=== PATIENT | female | born 1975 | race Caucasian/White ===

== ENCOUNTER 2024-01-04 10:29 | Outpatient (CLI) | payer BC, SELFPAY ==
--- NOTE | 2024-01-04 10:29 | CT_ITS ---
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 A noncontrast coronary calcium scan was performed. A CT attenuation threshold of 130 Hounsfield units (HU) was used for the detection of calcium in contiguous voxels of 1 sq mm in area to be counted as individual lesions. Bolus tracking in the ascending aorta with a threshold of 180 HU was performed. Immediately afterwards, ECG synchronized cardiac CT was then performed from the cardiac base to apex using retrospective gating with ECG tube current modulation. A total of 85 mL of Isovue 370 mg/mL contrast medium was administered at 5 mL/sec followed by a saline flush using a biphasic injection protocol. A tube voltage of 120 KVp was used. The patient received the following medications prior to the cardiac CT. 0.8 mg of sublingual nitroglycerin The average heart rate at the time of acquisition was 56 bpm and regular. Image Reconstruction Transaxial images were reconstructed at 0.67 mm slide thickness. Data was reviewed interactively on an advanced workstation capable of 2 and 3-dimensional displays in all conventional reconstruction formats, including multiplanar reformations, maximum intensity projections, curved multiplanar reformations, and volume rendered reconstructions. When applicable, selected routine images describing the relevant coronary anatomy and pathology were saved and sent to PACS. Complications None Technical Quality Overall image quality was good. Coronary artery opacification was adequate. Total DLP (Dose-Length Product) is 2570.0 mGy-cm. The reported value represents the total of one or more individual components during the CT acquisition of this date and at this time, and as such, the same value may appear in more than one CT report depending on the interpreting/reporting physicians. COMPARISON None FINDINGS CT Coronary Calcium Scoring LMA (Left Main Artery) = 0 LAD (Left Anterior Descending) = 73 LCX (Left Coronary Circumflex) = 0 RCA (Right Coronary Artery) = 0 Total Calcium Score = 73 using the AJ-130 method. The observed calcium score of 73 is at 99th percentile for subjects of the same age, sex, and race/ethnicity. The interpretation of the calcium heart score is based on the following continuum*: 0 = no calcified plaque detected (risk of coronary artery disease is very low ??? less than 5%) 1-10 = calcium detected in extremely minimal levels (risk of coronary diseases is still low ??? less than 10%) 11-100 = mild levels of plaque detected with certainty (mild or minimal narrowing of heart arteries is likely) 101-400 = definite,at least moderate levels of plaque detected (relatively high risk of a heart attack within 3-5 years) >401-999 = extensive levels of plaque detected (high risk of heart attack, high levels of vascular disease are present, high likelihood of at least one significant coronary narrowing) *The calcium heart score quantifies the burden of coronary calcification/plaque in the coronary arteries. The calcium heart score is not able to evaluate the presence or burden of non-calcified (i.e. soft) plaque. There is no identifiable calcification in the aortic valve, mitral annulus or mitral valve, pericardium, or myocardium. Coronary CT Angiography The coronary arterial system is left dominant. Quantitative Stenosis Grading: Left Main (LM): The left main originates normally from the left sinus of Valsalva. The LM bifurcates into the left anterior descending artery and left circumflex artery. The LM is patent with no evidence of atherosclerosis. Left Anterior Descending (LAD) and Diagonal Branches: The LAD gives off 3 diagonal branches. There are 2 foci of mixed calcified/noncalcified plaques present in the proximal LAD, with up to 25-49% luminal stenosis. There is no evidence of LAD-myocardial bridge. Left Circumflex (LCX) and Obtuse Marginals (OM): The LCX gives off 2 Obtuse Marginal (OM) branches. The LCX and its branches are patent with no evidence of atherosclerosis. Right Coronary Artery (RCA): The RCA originates normally from the right sinus of Valsalva. The RCA gives off a posterior descending artery (PDA) and posterolateral (PL) branches. The RCA and its branches are patent with no evidence of atherosclerosis. Non-Coronary Cardiac Findings: Analysis of the left ventricular (LV) structure and function was performed after 3-D reconstruction of the LV from axial images, with user-corrected automatic contouring for assessment of LV volumes and user-defined reconstruction from oblique planes for measurement of 3-D cardiac structure and function. -The left ventricle systolic function is mildly reduced (LVEF 46%). -There is no left atrial appendage filling defect. Two right pulmonary veins and two left pulmonary veins drain normally into the left atrium. -No pericardial thickening or calcification. -Central and branch pulmonary arteries in the [id number] are unremarkable. -Thoracic aorta within the visualized thoracic aortic-branches in the [id number] is unremarkable. Extracardiac Structures No significant extra-cardiac findings. Note, however, that this study is focused on the cardiac findings. IMPRESSION -Presence of coronary calcification with an Agatston score = 73 using the AJ-130 method. -The observed calcium score of 73 is at 99th percentile for subjects of the same age, sex, and race/ethnicity. -Mild atherosclerotic coronary disease in the proximal LAD segment, but no evidence of significant flow-limiting atherosclerosis of the coronary arteries. -CAD-RADS 2. Management recommendations per ACC/AHA guidelines*, as clinically appropriate. -The left ventricle systolic function is mildly reduced (LVEF 46%). Correlate LVEF with recent or new TTE *Recommendations: CAD RADS 0: Reassurance. Consider non-atherosclerotic causes of chest pain. CAD RADS 1: Consider non-atherosclerotic causes of chest pain. Consider preventive therapy and risk factor modification. CAD RADS 2: Consider non-atherosclerotic causes of chest pain. Consider preventive therapy and risk factor modification, particularly for patients with nonobstructive plaque in multiple segments. CAD RADS 3: Consider further functional testing. Consider symptom-guided anti-ischemic and preventive pharmacotherapy as well as risk factor modification per published guideline statements. CAD RADS 4A: Consider further functional testing or invasive coronary angiography with revascularization per published guideline statements. Consider symptom-guided anti-ischemic and preventive pharmacotherapy as well as risk factor modification per published guideline statements. CAD RADS 4B: Invasive coronary angiography recommended with revascularization per published guideline statements. Consider symptom-guided anti-ischemic and preventive pharmacotherapy as well as risk factor modification per published guideline statements. CAD RADS 5: Consider invasive angiography and/or viability assessment with revascularization per published guideline statements. Consider symptom-guided anti-ischemic and preventive pharmacotherapy as well as risk factor modification per published guideline statements. CRITICAL RESULT None COMMUNICATION Per this written report The coronary and cardiac findings of this CCTA were reviewed, reported, and signed by Karthikeyan Augustin MD (Carbonizer Tester) Conclusion Electronically signed by : Yuliet Augustin MD 01/05/2024 12:57:25
[2024-01-04 10:54] VITALS: BMI 40.6
[2024-01-04] MEDS: METOPROLOL TARTRATE 25MG TABLET 25 MG (11:10)
[2024-01-04] MEDS: IVABRADINE HCL 7.5MG TABLET 15 MG PO (11:10)
[2024-01-04] MEDS: METOPROLOL TARTRATE 50MG TABLET 50 MG (11:10)
[2024-01-04 11:11] LABS: POC Glucose,Bedside 88 (70-110)
[2024-01-04 11:23] LABS: Urine Pregnancy, HCG Qual. Negative (Negative)
[2024-01-04 11:23] LABS: Chloride 107 mmol/L (98-107); Sodium 138 mmol/L (136-145)
[2024-01-04 11:26] LABS: Blood Urea Nitrogen 12 mg/dl (7-17); Calcium 9.5 mg/dl (8.4-10.2); Carbon Dioxide 27 mmol/L (22.0-30.0); Creatinine Clearance Estimated 154 mL/min (50-200); Estimated Glomerular Filt Rate 77 ml/min (>60); GFR (African American) 93 ML/MIN (>60); Glucose 98 mg/dl (74-100)
--- NOTE | 2024-01-04 11:29 | CA_ITS ---
APPROVED REPORT EXAM: Comprehensive 2D, Doppler, and color-flow Echocardiogram Poker Room Manager: JENNIFER Schwartz, RVS Ht: 5 ft 5 in Wt: 244lbs BSA: 2.15 BP: 120/67 mmHg Indications: Palpitations, DM, obesity, GERD, Spinal fractures 2D Dimensions Left Atrium 3.54 cm LA Volume 38.00 mL RVID Base (AP4) 2.48 cm (M/F) 2.5-4.1 LA Volume Index 17.70 mL/m2 (M/F) 16-34 M-Mode Dimensions RVDd 1.52 cm (0.9-2.6) LVDd 4.99 cm (3.5-5.7) Ao Diam 2.93 cm (2.0-3.7) LVDs 3.09 cm (3.5-5.7) IVSd 0.80 cm (0.6-1.1) PWd 0.84 cm (0.6-1.1) EF (Teich) 68.10% EPSs 1.30 cm FS 38.10% EDV (Teich) 117.70 mL TAPSE 1.65 (<1.7) ESV (Teich) 37.60 mL LV Diastology E Decel Time 189 (160-240 msec) E/A Ratio 3.13 MED E' 13.7 (>= 7 cm/sec) MED A' 6.80 cm/s E'/MED E' Ratio 8.47 (<= 14) LAT E' 12.5 (>= 10 cm/sec) LAT A' 7.60 cm/s E/LAT E' Ratio 9.29 (<= 14) Aortic Valve LVOT Max 89.0 (70-110 cm/s) LVOT VTI 17.04 cm AoV Peak Beto. 119.0 (50-130 cm/s) AO Mean GR. 2.80 (<5 mmHg) AO VTI 25.6 (18-25 cm) Mitral Valve MV E Max Beto. 116.0 (40-130 cm/s) MV A Velocity 37.0 (40-130 cm/s) E/A Ratio 3.13 MV Decel. Time 189 (160-240 ms) MV Mean Gr. 1.60 (<2mmHg) Pulmonary Valve SC End VMAX 118.0 cm/s Left Ventricle The left ventricle is normal size. The left ventricular systolic function is mildly reduced. There is normal left ventricular wall thickness. There is mild global hypokinesis present. Grade 3 diastolic dysfunction is present. LVEF is 40-45%. Right Ventricle The right ventricle is normal size. The right ventricular systolic function is normal. Atria The left atrium size is normal. The right atrium size is normal. There is no Doppler evidence of interatrial shunt. Aortic Valve The aortic valve opens well. There is no aortic valvular stenosis. No aortic regurgitation is present. Mitral Valve The mitral valve is normal in structure. No evidence of mitral valve stenosis. Mild mitral regurgitation. Tricuspid Valve The tricuspid valve leaflets are thin and pliable. Trace tricuspid regurgitation. There is insufficient TR jet to estimate RVSP. Pulmonic Valve The pulmonary valve is normal in structure. Mild pulmonic regurgitation. Great Vessels The aortic root is normal in size. The ascending aorta is not well visualized. IVC is normal in size and collapses >50% with inspiration. Pericardium There is no pericardial effusion. Other Information Study Quality: Fair Conclusion Mildly reduced LV systolic function (LVEF 40-45%). Mild MR, mild PI. Electronically signed by : Yuliet Augustin MD 01/08/2024 16:24:47
[2024-01-04] MEDS: METOPROLOL TARTRATE 25MG TABLET *IVABRADINE+METOPROLOL REGIMINE 25 MG PO (12:02)
[2024-01-04 12:35] VITALS: BP 122/78; PULSE 60; RESP 18; O2SAT 98
[2024-01-04] MEDS: NITROGLYCERIN 0.4MG SL TABLET 0.800000000000000044 MG SL (12:35)
[2024-01-04 12:40] VITALS: BP 123/76; PULSE 72; RESP 18; O2SAT 99
[2024-01-04 12:45] VITALS: BP 114/73; PULSE 74; RESP 18; O2SAT 98
[2024-01-04 12:50] VITALS: BP 104/70; PULSE 68; RESP 18; O2SAT 99
[2024-01-04 12:57] VITALS: BP 115/46; PULSE 75; RESP 18; O2SAT 99
[2024-01-04] MEDS: 0.9 % SODIUM CHLORIDE 50 ML VIAL IV (13:01)
[2024-01-04] MEDS: SODIUM CHLORIDE 0.9% 10ML SYR (RAD ONLY) 10 ML IV (13:01)
[2024-01-04] MEDS: IOPAMIDOL-370 (76%);100ML BOTTLE 85 ML IV (13:02)
== END 2024-01-04 23:59 ==
LOC: RAD 10:29
PROVIDERS: PCP Nurse Practitioner Family; Visit Provider Nurse Practitioner Family
DX: R06.00 Dyspnea, unspecified (principal); R00.2 Palpitations; R53.83 Other fatigue; K21.9 Gastro-esophageal reflux disease without esophagitis; E13.9 Other specified diabetes mellitus without complications; Z79.4 Long term (current) use of insulin
CPT/HCPCS: 75571; 75574; 80048; 81025; 82962; 93306; Q9967

== ENCOUNTER 2024-01-31 09:55 | Outpatient (CLI) | payer BC, SELFPAY ==
[2024-01-31] MEDS: SODIUM CHLORIDE 0.9% 10ML SYR (RAD ONLY) 10 ML IV (11:15)
[2024-01-31] MEDS: SODIUM CHLORIDE 0.9% 50ML BAG 25 ML IV (11:15)
[2024-01-31] MEDS: GADOTERIDOL INJ 17ML SYRINGE 24 ML IV (11:16)
== END 2024-01-31 23:59 | disposition home or self-care (01) ==
LOC: RAD 09:56
PROVIDERS: PCP Nurse Practitioner Family; Visit Provider Nurse Practitioner Family
DX: I42.8 Other cardiomyopathies (principal); I51.9 Heart disease, unspecified
CPT/HCPCS: 75561; A9576

== ENCOUNTER 2024-02-16 10:10 | Outpatient (CLI) | payer BC, SELFPAY | END 2024-02-16 23:59 | disposition home or self-care (01) | LOC: LAB.DROPOF 02-17 10:11 | PROVIDERS: PCP Student in an Organized Health Care Education/Training Program; Visit Provider Student in an Organized Health Care Education/Training Program | DX: R39.89 Other symptoms and signs involving the genitourinary system (principal) | CPT/HCPCS: 87086 ==

== ENCOUNTER 2025-01-08 14:16 | Outpatient (CLI) | payer BC, SELFPAY | END 2025-01-08 23:59 | disposition home or self-care (01) | LOC: RT 14:17 | PROVIDERS: PCP Nurse Practitioner Family; Visit Provider Nurse Practitioner Family | DX: I49.3 Ventricular premature depolarization (principal); I49.1 Atrial premature depolarization; I47.10 Supraventricular tachycardia, unspecified | CPT/HCPCS: 93270; 93272 ==

== ENCOUNTER 2025-01-25 08:22 | Outpatient (CLI) | payer BC, SELFPAY ==
--- NOTE | 2025-01-25 | CA_ITS ---
APPROVED REPORT EXAM: Comprehensive 2D, Doppler, and color-flow Echocardiogram Dobie Man: Shanna Parada CRT Ht: 5 ft 5 in Wt: 226lbs BSA: 2.08 BP: 128/73 mmHg Indications: Shortness of Breath, Diabetes, Palpitations, Fatigue, Peripheral Edema, Hyperlipidemia, Cardiomyopathy EF 40-45% 2023 2D Dimensions LA Volume 31.80 mL LA Volume Index 14.90 mL/m2 (M/F) 16-34 M-Mode Dimensions RVDd 2.12 cm (0.9-2.6) LA Diam 3.43 cm (1.9-4.0) LVDd 4.34 cm (3.5-5.7) LVDs 3.19 cm (3.5-5.7) IVSd 0.97 cm (0.6-1.1) PWd 0.89 cm (0.6-1.1) EF (Teich) 52.20% FS 26.50% EDV (Teich) 84.90 mL TAPSE 2.34 (<1.7) ESV (Teich) 40.60 mL LV Diastology E Decel Time 150 (160-240 msec) E/A Ratio 1.41 MED A' 9.60 cm/s LAT A' 10.40 cm/s Aortic Valve AO Peak GR. 6.00 mmHg Mitral Valve MV E Max Beto. 121.0 (40-130 cm/s) MV A Velocity 85.0 (40-130 cm/s) E/A Ratio 1.41 MV PHT 44.0 ms Pulmonary Valve PV Peak Velocity 144.0 (50-150 cm/s) Tricuspid Valve TR P. Velocity 216.00 cm/s RAP Estimate 10.00 mmHg RVSP 28.60 mmHg Left Ventricle The left ventricle is normal size. The left ventricular systolic function is low normal. There is increased overall thickness. There is normal LV segmental wall motion. The left ventricular diastolic function is normal. LVEF is 50%. Right Ventricle The right ventricle is normal size. The right ventricular systolic function is normal. Atria The left atrium size is normal. The right atrium size is normal. There is no Doppler evidence of interatrial shunt. Aortic Valve The aortic valve opens well. There is no aortic valvular stenosis. No aortic regurgitation is present. Mitral Valve The mitral valve is normal in structure. No evidence of mitral valve stenosis. There is no mitral valve regurgitation noted. Tricuspid Valve Tricuspid valve is grossly normal in structure and function. Trace tricuspid regurgitation. There is insufficient TR jet to estimate RVSP. Pulmonic Valve The pulmonary valve is normal in structure. Trace pulmonic regurgitation. Great Vessels The aortic root is normal in size. IVC is normal in size and collapses >50% with inspiration. Pericardium There is no pericardial effusion. Other Information Study Quality: Fair Conclusion Low normal LV systolic function (LVEF 50%). Normal RV size and function. No significant valvular stenosis or regurgitation. Electronically signed by : Yuliet Augustin MD 01/31/2025 22:13:29
== END 2025-01-25 23:59 | disposition home or self-care (01) ==
LOC: RT 08:22
PROVIDERS: PCP Nurse Practitioner Family; Visit Provider Nurse Practitioner Family
DX: I50.20 Unspecified systolic (congestive) heart failure (principal)
CPT/HCPCS: 93306

== ENCOUNTER 2025-04-22 13:15 | Outpatient (CLI) | payer BC, SELFPAY ==
--- NOTE | 2025-04-22 13:17 | XR_ITS ---
FINAL REPORT TECHNIQUE: 3 views right knee CLINICAL HISTORY: right knee pain COMPARISON: None FINDINGS: RIGHT KNEE: 3 views of the right knee were obtained. There is no acute fracture or dislocation. Mild tricompartment degenerative changes present. There is lateral patellar subluxation. A small joint effusion is present. IMPRESSION: Degenerative change as described without acute bony abnormality. Reviewed, Interpreted and Dictated by Wander Topete MD Transcribed by Sonia Yoder Authenticated and [facility]
--- OUTSIDE RECORDS SUMMARY | 2025-04-22 13:19 | XMS_ITS | Encounter Summary ---
Author Organization [facility] Address [address] [place] [address] Care Team Providers Care Price Economist Name Role Phone Rosy Singh MIGDALIA Primary Care Provider Reason for Visit * Reason Comments Med Refill Encounter Details Date Type Department Care Team (Late st Contact Info) Description 07/27/2022 Refill Medical Office [facility] [address], [address] [place] [address] Warren Otero MD [address] [place] [address] Social History Tobacco Use Types Packs/Day Years Used Date Smoking Tobacco: Never Smokeless Tobacco: Never Alcohol Use Standard Drinks/Week Comments Never 0 (1 standard drink = 0.6 oz pur e alcohol) PHQ-2 Answer Date Recorded Patient Health Questionnaire-2 Score 0 04/06/2022 Comments Unknown Sex and Gender Information Value Date Recorded Sex Assigned at Female 01/01/2022 11:34 AM EDT Legal Sex Female 8:18 PM EDT Gender Identity Female 01/01/2022 11:34 AM EDT Sexual Orientation Straight 01/01/2022 11 :34 AM EDT documented as of this encounter Miscellaneous Notes * Telephone Encounter - Izzy Rodriguez PA - 07/27/2022 10:14 AM EDT She did not keep follow up appointments and has not had MRIs that were ordered. No recent labs on file. Should see PCP documented in this encounter Plan of Treatment Not on file documented as of this encounter Visit Diagnoses Not on filedocumented in this encounter Additional Health Concerns Assessment Noted Time A fall risk assessment has been complete d for the patient 05/06/2022 1:53 PM EDT documented as of this encounter Care Teams Price Economist Relationship Specialty Start Date End Date Rosy Singh APRN [address] [place] [address] PCP - General 02/13/21 documented as of this encounter
--- OUTSIDE RECORDS SUMMARY | 2025-04-22 13:19 | XMS_ITS | Data Portability ---
Author Organization [facility],, Main Office Address [address] [place] [address] Assessment No assessment recorded. 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 09:30A PHILLY Howe Not available Not available Not available Lab urinalysi s, dipstick 2024 025 [facility] Main Office, [address], [place], [address], 02/02/2025 16:51:15 test, urine 2024 025 [facility] Main Office, [address], [place], [address], 02/02/2025 16:51:15 urinalysi s, dipstick 2024 025 [facility] Main Office, [address], [place], [address], 12/27/2024 16:32:42 urinalysi s, dipstick 2024 025 [facility] Main Office, [address], [place], [address], 12/13/2024 16:21:17 Referral None recorded. Procedures None recorded. Surgeries None recorded. Imaging None recorded. Medication Orders doxycycli ne hyclate 100 mg capsule 2024 025 [facility], [address] [place], [address], 12/27/2024 16:33:12 nystatin 100,000 unit/gram topical powder 2024 025 [facility], [address] [place], [address], 12/13/2024 16:30:11 mefenamic acid 250 mg capsule 2024 025 [facility], [address] [place], [address], 12/13/2024 16:35:24 Patient TargetsNo targets recorded. Patient Instructions Encounter Date Encounter Id Patient Instructions Last Modified By Organization Details Last Modified Time 12/13/2024 [id number] painful urinatio n (dysuria): care instructions aclaxon Not available 12/14/2024 10:11:38 Risks of not following up discussed. Questions answered. Potential problems explained with risks gveloudis Not available 12/29/2024 17:57:42 12/17/2024 [id number] heavy menstrual periods: care instructions aclaxon Not available 12/18/2024 14:11:54 12/27/2024 [id number] Risks of not following up discussed. Questions answered. 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 Results Created Date Observation Date Name Description Value Unit Range Abnormal Flag Note LastModifiedBy Organization Detail LastModifiedTime 12/14/19 25 12/13/2024 urina lysis , dipst ick Leukocytes - Not Available Main Of [facility] [address], [place], [address], 12/13/2024 15:45:32 12/14/19 25 12/13/2024 urina lysis , dipst ick Nitrite negati ve Not Available Main Office [address], [place], [address], 12/13/2024 15:45:32 12/14/19 25 12/13/2024 urina lysis , dipst ick Urobilinogen - Not Available Main Office [address], [place], [address], 12/13/2024 15:45:32 12/14/19 25 12/13/2024 urina lysis , dipst ick Protein - Not Available Main Offic e [address], [place], [address], 12/13/2024 15:45:32 12/14/19 25 12/13/2024 urina lysis , dipst ick pH 6.0 Not Available Main Offic e [address], [place], [address], 12/13/2024 15:45:32 12/14/19 25 12/13/2024 urina lysis , dipst ick Blood uric acid- 50 Not Available Main Office [address], [place], [address], 12/13/2024 15:45:32 12/14/19 25 12/13/2024 urina lysis , dipst ick Specific [place] 1.010 Not Available Main O ffice [address], [place], [address], 12/13/2024 15:45:32 12/14/19 25 12/13/2024 urina lysis , dipst ick Ketone - Not Available Main Offic e [address], [place], [address], 12/13/2024 15:45:32 12/14/19 25 12/13/2024 urina lysis , dipst ick Bilirubin - Not Available Main Off ice [address], [place], [address], 12/13/2024 15:45:32 12/28/19 25 12/28/2024 VAGIN ITIS PANEL mee sp. Not Detect ed normal Trich omona s vagin juan alberto: DNA testi ng perfo rmed by Trans cript ion Media rachid Ampli ficat ion (TMA) These resul ts shoul d be inter prete d in light of all clini terese and labor atory findi ngs. This assay is highl y accur ate, but rare false posit donaldo and negat donaldo resul ts may occur . Posit donaldo resul ts in low preva lence popul ation s may requi re re-ev aluat ion. A negat donaldo resul t does not precl ude a possi ble infec tion due to a speci men inade quacy or sampl ing error . Test perfo rmed by [facility], d/b/a [facility], [address], [place] [address] , Madelyn eRese ra, DO, Labor atory Direc tor. Gardn elayne a vagin juan alberto, Kailee da speci es: Genom ic DNA is isola rachid from patie nt speci mens by stand laci labor atory techn iques and leelee zed using custo m OpenA rray plate s, perfo rmed on the Quant Studi o 12K Flex Real Time PCR syste m. A posit donaldo resul t is provi ded for patho genic bacte heidi, virus and/o r funga l speci es based on detec tion of ampli ficat ion produ cts. Ann l vagin al jenn resul ts of Ann l or [place] rachid are deter mined by calcu latin g the ratio of the organ ism to the total bacte heidi prese nt in the speci men, and marsha ring that ratio to a PathG roup patie nt popul ation . Overa ll resul ts of Ann l, Borde rline and Abnor mal are deter mined using a proba bilit y model which was devel oped by an exten sive leelee sis and integ ratio n of clini terese thres holds for marke r organ isms on a large set of sympt omati c & asymp tomat ic speci mens. Patie nt popul ation s with diffe rent demog raphi cs from the PathG rou model popul ation may have diffe rent indic ator organ isms with diffe rent relat donaldo ratio s, which would influ ence the final resul ts. Resul ts shoul d be inter prete d in the rom xt of all clini terese and labor atory findi ngs. The test was devel oped and its perfo rmanc e claribel cteri stics deter mined by [facility] [employer], [facility] d/b/a [facility] [employer]. It has not been clear ed or appro izabela by the U.S. Food and Drug Admin istra tion. The FDA has deter mined that such clear ance or appro jose is not neces skyler. Perti nent refer ence inter vals are avail able from the labor atory on reque st. Test( s) perfo rmed by [facility] [employer], [address], [place] [address] , Madelyn Reese ra, DO, Labor atory Direc tor. Not Available [facility]) [address] [facility] [address], [place], [address], 12/28/2024 22:52:22 12/28/19 25 12/28/2024 VAGIN ITIS PANEL gardnerella vaginalis Not Detect ed normal Trich omona s vagin juan alberto: DNA testi ng perfo rmed by Trans cript ion Media rachid Ampli ficat ion (TMA) These resul ts shoul d be inter prete d in light of all clini terese and labor atory findi ngs. This assay is highl y accur ate, but rare false posit donaldo and negat donaldo resul ts may occur . Posit donaldo resul ts in low preva lence popul ation s may requi re re-ev aluat ion. A negat donaldo resul t does not precl ude a possi ble infec tion due to a speci men inade quacy or sampl ing error . Test perfo rmed by [facility], d/b/a [facility], [address], [place] [address] , Madelyn Reese ra, DO, Labor atory Direc tor. Gardn erell a vagin juan alberto, Kailee da speci es: Genom ic DNA is isola rachid from patie nt speci mens by stand laci labor atory techn iques and leelee zed using custo m OpenA rray plate s, perfo rmed on the Quant Studi o 12K Flex Real Time PCR syste m. A posit donaldo resul t is provi ded for patho genic bacte heidi, virus and/o r funga l speci es based on detec tion of ampli ficat ion produ cts. Ann l vagin al jenn resul ts of Ann l or [place] rachid are deter mined by calcu latin g the ratio of the organ ism to the total bacte heidi prese nt in the speci men, and marsha ring that ratio to a PathG roup patie nt popul ation . Overa ll resul ts of Ann l, Borde rline and Abnor mal are deter mined using a proba bilit y model which was devel oped by an exten sive leelee sis and integ ratio n of clini terese thres holds for marke r organ isms on a large set of sympt omati c & asymp tomat ic speci mens. Patie nt popul ation s with diffe rent demog raphi cs from the PathG roup model popul ation may have diffe rent indic ator organ isms with diffe rent relat donaldo ratio s, which would influ ence the final resul ts. Resul ts shoul d be inter prete d in the rom xt of all clini terese and labor atory findi ngs. The test was devel oped and its perfo rmanc e claribel cteri stics deter mined by [employer] d/b/a [facility]. It has not been clear ed or appro izabela by the U.S. Food and Drug Admin istra tion. The FDA has deter mined that such clear ance or appro jose is not neces skyler. Perti nent refer ence inter vals are avail able from the labor atory on reque st. Test( s) perfo rmed by [facility] [employer], [facility], d/b/a [facility], [address], [place] [address] , Madelyn Reese ra, , Labor atory Direc tor. Not Available [facility] ([facility]) [address], [place], [address], 12/28/2024 22:52:22 12/28/19 25 12/28/2024 VAGIN ITIS PANEL trichomonas vaginalis, aptima (panther) NOT DETECT ED normal Trich omona s vagin juan alberto: DNA testi ng perfo rmed by Trans cript ion Media rachid Ampli ficat ion (TMA) These resul ts shoul d be inter prete d in light of all clini terese and labor atory findi ngs. This assay is highl y accur ate, but rare false posit donaldo and negat donaldo resul ts may occur . Posit donaldo resul ts in low preva lence popul ation s may requi re re-ev aluat ion. A negat donaldo resul t does not precl ude a possi ble infec tion due to a speci men inade quacy or sampl ing error . Test perfo rmed by [employer], [employer], d/b/a [facility], [address], [place] [address] , Madelyn Reese ra, , Labor atory Direc tor. Gardn erell a vagin juan alberto, Kailee da speci es: Genom ic DNA is isola rachid from patie nt speci mens by stand laci labor atory techn iques and leelee zed using custo m OpenA rray plate s, perfo rmed on the Quant Studi o 12K Flex Real Time PCR syste m. A posit donaldo resul t is provi ded for patho genic bacte heidi, virus and/o r funga l speci es based on detec tion of ampli ficat ion produ cts. Ann l vagin al jenn resul ts of Ann l or [place] rachid are deter mined by calcu latin g the ratio of the organ ism to the total bacte heidi prese nt in the speci men, and marsha ring that ratio to a PathG roup patie nt popul ation . Overa ll resul ts of Ann l, Borde rline and Abnor mal are deter mined using a proba bilit y model which was devel oped by an exten sive leelee sis and integ ratio n of clini terese thres holds for marke r organ isms on a large set of sympt omati c & asymp tomat ic speci mens. Patie nt popul ation s with diffe rent demog raphi cs from the PathG roup model popul ation may have diffe rent indic ator organ isms with diffe rent relat donaldo ratio s, which would influ ence the final resul ts. Resul ts shoul d be inter prete d in the rom xt of all clini terese and labor atory findi ngs. The test was devel oped and its perfo rmanc e claribel cteri stics deter mined by [employer], [employer] d/b/a [employer]ian [employer]. It has not been clear ed or appro izabela by the U.S. Food and Drug Admin istra tion. The FDA has deter mined that such clear ance or appro jose is not neces skyler. Perti nent refer ence inter vals are avail able from the labor atory on reque st. Test( s) perfo rmed by [facility] [employer], [employer], d/b/a [employer]ian [employer], [address], [place] [address] , Madelyn Reese ra, DO, Labor atory Dire tor. Not Available [facility] ([facility]) [address], [place], [address], 12/28/2024 22:52:22 12/28/19 25 12/27/2024 urina lysis , dipst ick Leukocytes - Not Available Main Of fice [address], [place], [address], 12/27/2024 15:02:16 12/28/19 25 12/27/2024 urina lysis , dipst ick Nitrite negati ve Not Available Main Office [address], [place], [address], 12/27/2024 15:02:16 12/28/19 25 12/27/2024 urina lysis , dipst ick Urobilinogen - Not Available Main Office [address], [place], [address], 12/27/2024 15:02:16 12/28/19 25 12/27/2024 urina lysis , dipst ick Protein - Not Available Main Offic e [address], [place], [address], 12/27/2024 15:02:16 12/28/19 25 12/27/2024 urina lysis , dipst ick pH 6.0 Not Available Main Offic e [address], [place], [address], 12/27/2024 15:02:16 12/28/19 25 12/27/2024 urina lysis , dipst ick Blood ua-50 Not Available Main Offic e [address], [place], [address], 12/27/2024 15:02:16 12/28/19 25 12/27/2024 urina lysis , dipst ick Specific [place] 1.010 Not Available Main O ffice [address], [place], [address], 12/27/2024 15:02:16 12/28/19 25 12/27/2024 urina lysis , dipst ick Ketone - Not Available Main Offic e [address], [place], [address], 12/27/2024 15:02:16 12/28/19 25 12/27/2024 urina lysis , dipst ick Bilirubin - Not Available Main Off ice [address], [place], [address], 12/27/2024 15:02:16 01/04/20 25 01/03/2025 pregn sharon test, urine HCG negati ve Not Available Main Office [address], [place], [address], 01/03/2025 11:07:35 01/04/20 25 01/03/2025 urina lysis , dipst ick Nitrite negati ve Not Available Main Office [address], [place], [address], 01/03/2025 11:07:32 01/04/20 25 01/03/2025 urina lysis , dipst ick Leukocytes - Not Available Main Of fice [address], [place], [address], 01/03/2025 11:07:32 01/04/20 25 01/03/2025 urina lysis , dipst ick Urobilinogen - Not Available Main Office [address], [place], [address], 01/03/2025 11:07:32 01/04/20 25 01/03/2025 urina lysis , dipst ick Protein - Not Available Main Offic e [address], [place], [address], 01/03/2025 11:07:32 01/04/20 25 01/03/2025 urina lysis , dipst ick pH 6.0 Not Available Main Offic e [address], [place], [address], 01/03/2025 11:07:32 01/04/20 25 01/03/2025 urina lysis , dipst ick Blood ua-100 Not Available Main Offic e [address], [place], [address], 01/03/2025 11:07:32 01/04/20 25 01/03/2025 urina lysis , dipst ick Specific [place] 1.005 Not Available Main O ffice [address], [place], [address], 01/03/2025 11:07:32 01/04/20 25 01/03/2025 urina lysis , dipst ick Ketone 0.5 Not Available Main Offic e [address], [place], [address], 01/03/2025 11:07:32 01/04/20 25 01/03/2025 urina lysis , dipst ick Bilirubin - Not Available Main Off ice [address], [place], [address], 01/03/2025 11:07:32 11/19/19 25 11/19/2024 imagi ng/di agnos tic resul t No observ ation record ed. shannon [facility] [address], [place], [address], 11/21/2024 18:41:54 11/20/19 25 11/19/2024 imagi ng/di agnos tic resul t No observ ation record ed. shannon [facility] [address], [place], [address], 11/21/2024 18:41:55 11/20/19 25 11/20/2024 imagi ng/di agnos tic resul t No observ ation record ed. [email or web address] [facility] [address], [place], [address], 11/21/2024 18:41:55 11/20/19 25 11/20/2024 imagi ng/di agnos tic resul t No observ ation record ed. [email or web address] Not Available 2024 18:41:55 11/23/19 25 11/19/2024 imagi ng/di agnos tic resul t No observ ation record ed. [email or web address] Not Available 2024 15:37:25 01/04/20 25 01/03/2025 imagi ng/di agnos tic resul t No observ ation record ed. [id number] [address], [place], [address], 01/03/2025 12:05:29 01/04/20 25 01/03/2025 imagi ng/di agnos tic resul t No observ ation record ed. [id number], [place], [address], 01/03/2025 12:05:43 04/11/20 25 04/11/2025 imagi ng/di agnos tic resul t No observ ation record ed. [id number], [place], [address], 04/11/2025 11:36:15 04/11/20 25 04/11/2025 imagi ng/di agnos tic resul t No observ ation record ed. [id number], [place], [address], 04/11/2025 11:36:26 Result Notes None recorded. Problems Name Problem SNOMED Code Status Onset Date Resolution Date Notes Provider Name and Address Organization Details Recorded Time Cystitis 86931097 Com[facility] 201812/25/2018 [facility] 14:48:08 Irritable bowel syndrome 54682452 Active 2018 Sally farris [facility], 9 14:47:57 Chronic interstitia l cystitis 838693430 Active [address] [facility], 9 14:48:05 Problem Notes None recorded. Procedures Surgical History Date Name Laterality Status Provider Name and Address Organization Details Recorded Time 11/23/19 25 hysteroscopic excision of polyp of uterus completed PHILLY [address], [place], [address], 12/13/2024 15:53:17 11/08/19 25 Endometrial Biopsy completed DO [address], [facility] [address], 11/11/2024 15:36:15 06/12/20 24 Date of Last Pap Smear completed Herbert Mena [facility], 06/12/2024 09:57:21 laparoscopic cholecystectomy completed PHILLY [address], [place], [address], 12/25/2018 15:03:32 Unlisted px dentalvlr strux completed [facility], 05/03/2017 14:47:35 Cystoscopy completed [facility], 05/03/2017 14:49:19 Irrigation of bladder completed [facility], 05/03/2017 14:49:32 Imaging Results None recorded. Procedure Notes None recorded. Medical Equipment None Reported. Allergies No known drug allergies Medications Name Sig Start Date Stop Date Status Note LastModified by Organization Details LastModified Time amoxicillin 500 mg capsule TAKE ONE CAPSULE BY MOUTH TWICE DAILY FOR 10 DAYS. 11/19 completed Not Available Not Available Not Available medroxyprog esterone 10 mg tablet TAKE 1 TABLET BY MOUTH ONCE A DAY FOR 10 DAYS DIRECTED. active Not Available Not Available No t Available fluconazole 100 mg tablet TAKE 1 TABLET BY MOUTH AFTER FINISHING ANTIBIOTI CS AND REPEAT IN 3 DAYS IF NEEDED 08/21 completed Not Available Not Available Not Available atorvastati n 40 mg tablet TAKE 1 TABLET BY MOUTH ONCE A DAY. active Not Available Not Available No t Available methocarbam ol 500 mg tablet TAKE (1) TABLET BY MOUTH EVERY EIGHT HOURS NEEDED. active Not Available Not Available No t Available metformin 500 mg tablet TAKE (1) TABLET BY MOUTH TWICE A DAY. 08/13 completed Not Available Not Available Not Available prednisone 10 mg tablet TAKE 5 TABS DAILY ON DAYS 1&2, 4 TABS A DAY DAYS 3&4, 3TABS DAILY ON DAYS 5&6, 2 TABS DAILY ON DAYS 7&8, 1 TAB ON DAYS 9&10 & 1/2 TAB ON DAYS 11 & 12 06/12 completed Not Available Not Available Not Available rabeprazole 20 mg tablet,sudha yed release TAKE 1 TABLET BY MOUTH ONCE DAILY. active Not Available Not Available No t Available doxycycline hyclate 100 mg capsule TAKE 1 CAPSULE BY MOUTH TWICE DAILY FOR 7 DAYS. active Not Available Not Available No t Available clindamycin HCl 300 mg capsule 08/13 completed Not Available Not Available Not Available azithromyci n 250 mg tablet TAKE 2 TABLETS TODAY THEN TAKE 1 TABLET DAILY FOR THE NEXT 4 DAYS 08/21 completed Not Available Not Available Not Available ibuprofen 800 mg tablet TAKE (1) TABLET BY MOUTH EVERY EIGHT HOURS NEEDED. active Not Available Not Available No t Available fluconazole 150 mg tablet TAKE 1 TABLET BY MOUTH ONCE A DAY. active Not Available Not Available No t Available hydrocodone 5 mg-acetamin ophen 325 mg tablet TAKE 1 TABLET BY MOUTH EVERY 4-6 HOURS active Not Available Not Available No t Available Nystop 100,000 unit/gram topical powder APPLY TO THE AFFECTED AREA(S) TOPICALLY 2 TIMES DAILY NEEDED. active Not Available Not Available No t Available ondansetron HCl 8 mg tablet TAKE (1) TABLET BY MOUTH TWICE A DAY. active Not Available Not Available No t Available fluconazole 200 mg tablet 05/03 completed Not Available Not Available Not Available meloxicam 15 mg tablet 05/03 completed Not Available Not Available Not Available phenazopyri dine 200 mg tablet Take 1 tablet 3 times a day by oral route as needed for 30 days. 08/11 completed Not Available Not Available Not Available prednisone 20 mg tablet TAKE 1 TABLET BY MOUTH TWICE DAILY FOR 5 DAYS. 11/19 completed Not Available Not Available Not Available spironolact one 100 mg tablet TAKE 1 TABLET BY MOUTH ONCE A DAY. 08/11 completed Not Available Not Available Not Available Anucort-HC 25 mg suppository INSERT 1 SUPPOSITO RY TWICE A DAY BY RECTAL ROUTE FOR 14 DAYS. active Not Available Not Available No t Available fexofenadin e 180 mg tablet TAKE 1 TABLET BY MOUTH DAILY 06/12 completed Not Available Not Available Not Available ciprofloxac in 500 mg tablet 05/03 completed Not Available Not Available Not Available sulfamethox azole 800 mg-trimetho prim 160 mg tablet 12/25 completed Not Available Not Available Not Available omeprazole 40 mg capsule,del ayed release TAKE 1 CAPSULE BY MOUTH ONCE A DAY. 08/13 completed Not Available Not Available Not Available aspirin 81 mg tablet,sudha yed release TAKE 1 TABLET BY MOUTH ONCE A DAY. active Not Available Not Available No t Available tramadol 50 mg tablet TAKE (1) TABLET BY MOUTH THREE TIMES DAILY NEEDED. 06/12 completed Not Available Not Available Not Available ondansetron 8 mg disintegrat ing tablet DISSOLVE 1 TABLET BY MOUTH EVERY 8 HOURS NEEDED active Not Available Not Available No t Available ketorolac 10 mg tablet 05/03 completed Not Available Not Available Not Available oxycodone-a cetaminophe n 5 mg-325 mg tablet 05/03 completed Not Available Not Available Not Available hydrocortis one 2.5 % topical cream with perineal applicator active Not Available Not Available N ot Available amoxicillin 875 mg tablet 05/03 completed Not Available Not Available Not Available mefenamic acid 250 mg capsule TAKE 2 CAPSULES BY MOUTH INITIALLY AND THEN 1 CAPSULES EVERY 6 HOURS NEEDED. active Not Available Not Available No t Available hydrocortis one 2.5 % lotion 08/11 completed Not Available Not Available Not Available gentamicin 0.3 % eye drops INSTILL 1 DROP INTO AFFECTED EYE(S) EVERY 4 HOURS active Not Available Not Available No t Available tamsulosin 0.4 mg capsule 08/13 completed Not Available Not Available Not Available hydrocodone 7.5 mg-acetamin ophen 325 mg tablet 12/25 completed Not Available Not Available Not Available econazole nitrate 1 % topical cream 12/25 completed Not Available Not Available Not Available cephalexin 500 mg capsule TAKE (1) CAPSULE BY MOUTH TWICE DAILY FOR 7 DAYS, START TOMORROW. 08/21 completed Not Available Not Available Not Available pantoprazol e 40 mg tablet,sudha yed release 08/13 completed Not Available Not Available Not Available esomeprazol e magnesium 40 mg capsule,del ayed release 08/13 completed Not Available Not Available Not Available nystatin 100,000 unit/gram topical cream 08/21 completed Not Available Not Available Not Available clotrimazol e-betametha sone 1 %-0.05 % topical cream APPLY TO AFFECTED AREA TWICE DAILY 08/13 completed Not Available Not Available Not Available olopatadine 0.1 % eye drops INSTILL 1 DROP INTO AFFECTED EYE(S) BY OPHTHALMI C ROUTE 2 TIMES PER DAY AT AN INTERVAL OF 6 TO 8 HOURS 08/21 completed Not Available Not Available Not Available triamcinolo ne acetonide 55 mcg nasal spray aerosol 08/13 completed Not Available Not Available Not Available indomethaci n 50 mg capsule TAKE (1) CAPSULE BY MOUTH EVERY EIGHT HOURS. 08/13 completed Not Available Not Available Not Available aspirin 81 mg chewable tablet CHEW AND SWALLOW (1) TABLET DAILY. 11/08 completed Not Available Not Available Not Available diclofenac sodium 75 mg tablet,sudha yed release Take 1 tablet every 12 hours by oral route as needed. 08/13 completed Not Available Not Available Not Available montelukast 10 mg tablet TAKE 1 TABLET BY MOUTH ONCE A DAY. 06/12 completed Not Available Not Available Not Available metoprolol succinate ER 25 mg tablet,exte nded release 24 hr TAKE 1 TABLET BY MOUTH ONCE A DAY. active Not Available Not Available No t Available ergocalcife rol (vitamin D2) 1,250 mcg (50,000 unit) capsule TAKE 1 CAPSULE BY MOUTH ONCE A WEEK. active Not Available Not Available No t Available azelastine 137 mcg (0.1 %) nasal spray 06/12 completed Not Available Not Available Not Available ibuprofen 600 mg tablet TAKE (1) TABLET THREE TIMES DAILY NEEDED WITH FOOD. active Not Available Not Available No t Available cefuroxime axetil 500 mg tablet 08/13 completed Not Available Not Available Not Available levofloxaci n 500 mg tablet TAKE 1 TABLET BY MOUTH ONCE DAILY FOR 5 DAYS. active Not Available Not Available No t Available letrozole 2.5 mg tablet TAKE (3) TABLETS BY MOUTH DAILY ON DAYS 4-8. 06/12 completed Not Available Not Available Not Available scopolamine 1 mg over 3 days transdermal patch APPLY 1 PATCH TO SKIN EVERY 72 HOURS NEEDED active Not Available Not Available No t Available methylpredn isolone 4 mg tablets in a dose pack TAKE 6 TABS ON DAY 1, TAKE 5 TABS ON DAY 2, TAKE 4 TABS ON DAY 3, TAKE 3 TABS ON DAY 4, TAKE 2 TABS ON DAY 5, TAKE 1 ON DAY 6. TAKE WITH FOOD. 06/12 completed Not Available Not Available Not Available hydrocodone 10 mg-chlorphe niramine 8 mg/5 mL oral susp extend.rel 12hr TAKE 1 TEASPOONF UL EVERY 12 HOURS NEEDED 08/13 completed Not Available Not Available Not Available ondansetron 4 mg disintegrat ing tablet 06/12 completed Not Available Not Available Not Available cefdinir 300 mg capsule TAKE (1) CAPSULE BY MOUTH TWICE DAILY. 06/12 completed Not Available Not Available Not Available fluticasone propionate 50 mcg/actuati on nasal spray,suspe nsion USE 1 SPRAY IN EACH NOSTRIL ONCE A DAY. 11/19 completed Not Available Not Available Not Available metformin ER 500 mg tablet,exte nded release 24 hr TAKE (1) TABLET BY MOUTH TWICE A DAY. active Not Available Not Available No t Available lisinopril 2.5 mg tablet TAKE 1 TABLET BY MOUTH ONCE A DAY. 06/12 completed Not Available Not Available Not Available colestipol 1 gram tablet TAKE 1 TABLET BY MOUTH ONCE A DAY. 06/12 completed Not Available Not Available Not Available naproxen 500 mg tablet 08/11 completed Not Available Not Available Not Available amoxicillin 875 mg-potassiu m clavulanate 125 mg tablet TAKE 1 TABLET BY MOUTH EVERY 12 HOURS 06/12 completed Not Available Not Available Not Available amoxicillin 500 mg-magen schafer clavulanate 125 mg tablet 08/11 completed Not Available Not Available Not Available oxycodone 5 mg tablet 08/11 completed Not Available Not Available Not Available azithromyci n 500 mg tablet 05/03 completed Not Available Not Available Not Available metoprolol tartrate 25 mg tablet TAKE 1/2 TABLET BY MOUTH ONCE DAILY. 08/21 completed Not Available Not Available Not Available nitrofurant oin monohydrate /macrocryst als 100 mg capsule TAKE 1 CAPSULE BY MOUTH EVERY 12 HOURS 08/21 completed Not Available Not Available Not Available duloxetine 20 mg capsule,del ayed release TAKE (1) CAPSULE BY MOUTH ONCE A DAY. 11/19 completed Not Available Not Available Not Available duloxetine 30 mg capsule,del ayed release 08/11 completed Not Available Not Available Not Available Jaimie [facility] 06/12 completed Not Available Not Available Not Available Dymista 137 mcg-50 mcg/spray nasal spray 05/03 completed Not Available Not Available Not Available Lancets,Ult ra Thin 26 gauge 08/21 completed Not Available Not Available Not Available Linda Fe /20 (28) 1 mg-20 mcg (21)/75 mg (7) tablet 12/25 completed Not Available Not Available Not Available Linda 1/20 (21) 1 mg-20 mcg tablet 12/25 completed Not Available Not Available Not Available True Metrix Glucose Test Strip Take 4 strips every day by miscell. route for 30 days. 08/21 completed Not Available Not Available Not Available Linda 24 Fe 1 mg-20 mcg (24)/75 mg (4) tablet Take 1 tablet every day by oral route. 12/25 completed Not Available Not Available Not Available OneTouch Ultra Blue Test Strip 08/21 completed Not Available Not Available Not Available Humira(CF) Pen 40 mg/0.4 mL subcutaneou s kit INJECT ONE PEN UNDER THE SKIN EVERY OTHER WEEK 06/12 completed Not Available Not Available Not Available Fluzone Quad (PF) 60 mcg (15 mcg x 4)/0.5 mL IM syringe 09/10 /2024 completed Not Available Not Available Not Available Mounjaro 7.5 mg/0.5 mL subcutaneou s pen injector INJECT 7.5 MG UNDER THE SKIN ONCE WEEKLY. active Not Available Not Available No t Available Mounjaro 5 mg/0.5 mL subcutaneou s pen injector INJECT 5MG SUB-Q WEEKLY 08/21 completed Not Available Not Available Not Available Mounjaro 10 mg/0.5 mL subcutaneou s pen injector INJECT 10 MG UNDER THE SKIN ONCE WEEKLY. 06/12 completed Not Available Not Available Not Available Vitals Date Recorded Body temperature Provider Name a nd Address Organization Details Last Updated DateTime 12/13/2024 96.2 [degF] Jun Marinelli [address] [place] [address], [place], [address], [facility], 12/13/2024 16:35:58 Date Recorded Body height Body mass index (BMI) Body weight Heart rate Systolic And Diastolic Provider Name and Address Organization Details Last Updated DateTime 12/13/2024 165.1 cm 37.7 kg/m2 547754.0 3 g 95 /min 116/71 mm[Hg] [facility], 12/13/2024 15:45:11 Date Recorded Body height Body mass index (BMI) Body weight Heart rate Body temperature Systolic And Diastolic Provider Name and Address Organization Details Last Updated DateTime 165.1 cm 39.2 kg/m2 690780. 36 g 81 /min 96.7 [degF] 104/68 mm[Hg] [facility], 15:01:52 Date Recorded Body height Body mass index (BMI) Body weight Heart rate Body temperature Systolic And Diastolic Provider Name and Address Organization Details Last Updated DateTime 165.1 cm 37.8 kg/m2 118868. 9 g 83 /min 96.6 [degF] 103/68 mm[Hg] [facility], 11:05:51 Date Recorded Body height Body mass index (BMI) Body weight Heart rate Body temperature Systolic And Diastolic Provider Name and Address Organization Details Last Updated DateTime 5 165.1 cm 38.3 kg/m2 510418. 68 g 75 /min 96.6 [degF] 117/74 mm[Hg] Nancy Solorzano [facility], 5 11:14:21 Social History Question Answer Notes LastModified by Organizat ion Details LastModified Time Tobacco Smoking Status Never Smoker Not Available [employer] 07/29/2020 03:20:24 Able To Swim? Yes [email or web address] Informatio n not available 12/25/2018 Accident Related Injury No [email or web address] Information not available 12/25/2018 Do You Have An Advance Directive? No [id number] Information not available 07/29/2020 Animal Exposure? Yes [email or web address] Informa tion not available 12/25/2018 Are You Currently Sexually Active With Anyone Who Has Traveled (within The Last 12 Weeks) To A Zika-affected Area? No [id number] Information not available 07/29/2020 Do You Wear A Helmet When Biking? No [id number] Information not available 07/29/2020 Are You Blind Or Do You Have Difficulty Seeing? No [id number] Information not available 07/29/2020 What Is Your Level Of Caffeine Consumption? None [id number] Information not available 07/29/2020 How Much Tobacco Do You Chew? None [id number] Information not available 07/29/2020 Concerns About Meeting Basic Needs (food, Housing, Heat, Etc)? No [email or web address] Information not available 12/25/2018 Are You Deaf Or Do You Have Serious Difficulty Hearing? No [id number] Information not available 07/29/2020 What Type Of Diet Are You Following? SPECIFIC [id number] Information not available 07/29/2020 Which Illicit Or Recreational Drugs Have You Used? None [id number] Information not available 07/29/2020 Education 4 Year College Information not available 05/03/2017 How Many Days Of Moderate To Strenuous Exercise, Like A Brisk Walk, Did You Do In The Last 7 Days? 1 [id number] Information not available 07/29/2020 On Those Days That You Engage In Moderate To Strenuous Exercise, How Many Minutes, On Average, Do You Exercise? 1 [id number] Information not available 07/29/2020 Family History Of Heart Disease? No [email or web address] Information not available 12/25/2018 Have There Been Any Changes To Your Family Or Social Situation? No [id number] Information no t available 07/29/2020 How Hard Is It For You To Pay For The Very Basics Like Food, Housing, Medical Care, And Heating? 1 [email or web address] Information not available 12/25/2018 Are There Any Guns Present In Your Home? Yes [id number] Information not available 07/29/2020 Hard Of Hearing Or Deaf In One Or Both Ears? No Information not available 05/03/2017 Legally Blind In One Or Both Eyes? No Information no t available 05/03/2017 Live Alone Or With Others? With Others Information not available 05/03/2017 Do You Have A Medical Power Of Canine Service Teacher? No [id number] Information not available 07/29/2020 What Was The Date Of Your Most Recent Tobacco Screening? 12/25/2018 [id number] Information not available 07/29/2020 How Many Children Do You Have? 0 [id number] Information not available 07/29/2020 Performs Monthly Self-breast Exam? Yes Information no t available 05/03/2017 Do You Have Any Pets? No [id number] Information not available 07/29/2020 Difficulty Reading? No [email or web address] Information not available 12/25/2018 Seat Belts Used Routinely Yes Information not available 05/03/2017 Are You Sexually Active? Yes [id number] Information not available 07/29/2020 Smoke Alarm In Home Yes Information not available 05/03/2017 Do You Have Smoke And Carbon Monoxide Detectors In Your Home? No [id number] Information not available 07/29/2020 Are You Passively Exposed To Smoke? No Information no t available 05/03/2017 Are There Any Smokers In Your House? No [email or web address] Information not available 12/25/2018 How Much Tobacco Do You Smoke? No [id number] Information not available 07/29/2020 General Stress Level High Information not available 05/03/2017 Do You Use Sunscreen Routinely? Yes [id number] Information not available 07/29/2020 TB Risk Low [email or web address] Information n ot available 12/25/2018 Has Tobacco Cessation Counseling Been Provided? No [id number] Information not available 07/29/2020 Difficulty Watching TV? No Information not available 12/25/2018 Do You Have Difficulty Walking Or Climbing Stairs? No [id number] Information not available 07/29/2020 Sex: Unknown Functional Status Question Answer Note LastModified by Organizat ion Details LastModified Time What is your level of alcohol consumption? None [id number] Information not available 07/29/2020 Are you currently employed? Yes [id number] Information not available 07/29/2020 Do you have transportation difficulties? No [id number] Information not available 07/29/2020 Are you able to walk? YESWOREST [id number] Information not available 07/29/2020 Do you have difficulty doing errands alone? No [id number] Information not available 07/29/2020 Are you able to care for yourself? 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 No [id number] Information not available 07/29/2020 What is your exercise level? Moderate [id number] Information not available 07/29/2020 Mental Status Question Answer Note LastModified by Organization D etails LastModified Time Do you feel stressed (tense, restless, nervous, or anxious, or unable to sleep at night)? 1 [id number] Information not available 07/29/2020 Do you have difficulty concentrating, remembering or making decisions? No [id number] Information no t available 07/29/2020 Family History Relationship Description Onset Age of this Age Resolved Age Notes LastModified by Organization Details LastModified Time Father Hypertensive disorder [email or web address] Not available 05/03 14:40:22 Father Diabetes mellitus [email or web address] Not available 05/03 14:40:36 Father Heart disease [email or web address] Not available 05/03 14:41:18 Maternal Grandmother Diabetes mellitus [email or web address] Not available 05/03 14:40:46 Paternal Grandfather Tuberculosis [email or web address] Not available 0 12/17/2024 15:37:05 Medical History Condition Response Coronary Artery Disease N Other N Gout N Kidney Stones N Blood Diseases N Hyperthyroidism N Enlarged Prostate N Blood Transfusion N COPD N Depression N Dermatologic Disorders N Gestational Diabetes N Anxiety Disorder N Muscle, Joint, or Bone Problems Y Autoimmune disease N Obesity Y Vision or Eye Problems N Arthritis N Polyps N Infertility N Mental Disorder N Cancer N Varicosities N Stroke N Neurologic/Epilepsy N Headaches N Fibromyalgia N Kidney Disease N Heart Problems N Ear or Hearing Problems N Hospitalizations N Acne N Skin Problems N Eating Disorder N MRSA exposure N Heartburn N Constipation N Art (IVF or FET) N Bladder Problems Y Bleeding Disorder N Tuberculosis N AIDS/HIV N G.E.R.D N Asthma Y Trauma/Violence N Hepatitis N Pulmonary Embolism N Chronic Ear Infections N Chicken Pox N Autism Spectrum Disorder (ASD) N Thrombophilias N Allergies (Food, seasonal, environmental ) N Colon Cancer N Drug/Latex Allergies/Reactions N Breast Cancer N Hypothyroidism N Lung Disease N Developmental or Behavioral Disorders N Defects or Inherited Disease N Breast Problem N Difficulty Swallowing N Hematologic disorders N Anesthesia Complications N History of STI N Deep Vein Thrombosis N Polycystic ovary syndrome N Meniere's disease N History of abnormal pap N Endometriosis N High Cholesterol N Liver Disease N Allergies/Hayfever N Kidney Problems N Thyroid Problems N GI Problems Y ADD/ADHD N Anemia N Mental Illness N Psychiatric Illness N Diabetes Y Ovarian Cancer N Pulmonary (TB, Asthma) N Seizures/Epilepsy N Congestive Heart Failure (CHF) N Hyperlipidemia N Eczema N Abuse/Domestic Violence N Diverticulitis N Depression/ depression N Heart Disease N Hypertension N Pre-Eclampsia N Osteoporosis N Gynecological History Statement/Question Response Abnormal Pap N Flow Light Date of Last Mammogram Date of LMP 11/06/2024 On BCP's at Conception? Y STIs/STDs N HPV Vaccine N Duration of Flow (days) 5 Age at Menarche 16 Most Recent Mammogram Date of Last Colonoscopy Frequency of Cycle (Q days) 28 Sexually Active? Y Menses Monthly Y Date of Last Pap Smear 06/12/2024 Sexual Problems? 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 Gynecologi c examination 76139703 Z01.411 [id number] Jhoan Patino DO Main Office [address] [place] [address] 12/25/2018 14:25:57 12/25/2018 16:25:03 Gynecologic examination 43109159 Z01.411 fasting blood work, pap Body mass index 40+ - severely obese 867495567 Z68.42 Screening for malignant neoplasm of colon 471487891 Z12.11 [id number] Jhoan Patino DO Main Office [address] [place] [address] 05/10/2019 15:44:05 05/10/2019 16:50:23 Right lower quadrant pain 607658727 R10.31 Cyst of right ovary 1223 251596 5733607 N83.01 Body mass index 40+ - severely obese 894622239 Z68.42 [id number] Jhoan Patino DO Main Office [address] [place] [address] 11/08/2019 14:09:04 11/08/2019 16:37:25 Type 2 diabetes mellitus 13974120 E11.9 labs Pain in pelvis 11231474 R10.2 instrument 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 Eruption 038474290 R21 Candidiasis of skin 4988 3006 B37.2 Renewal of prescription 247391072 Z76.0 Edema of l ower extremity 448741172 R60.0 Vitamin deficiency 42182 002 E56.8 [id number] Jhoan Patino DO Main Office [address] [place] [address] 11/19/2019 14:43:36 11/19/2019 16:03:27 Right lower quadrant pain 869985020 R10.31 Microscopic hematuria 19 0342854 R31.21 Pain in pelvis 81721829 R10.2 Body mass index 40+ - severely obese 039659710 Z68.42 [id number] Jhoan Patino DO Main Office [address] [place] [address] 08/11/2020 10:18:47 08/11/2020 12:00:35 Gynecologic examination 71772892 Z01.411 fasting blood work, pap Renewal of prescription 672556486 Z76.0 Mastodynia of right breast 7011536012 7691783 N64.4 Discharge from nipple 54 473479 N64.52 Mastodynia of bilateral breasts 0755843797 7028266 N64.4 Pain in pelvis 75148286 R10.2 instrument assembler u/s ordered Cyst of right ovary 1223 390293 2095610 N83.291 [id number] Jhoan Patino DO Main Office [address] [place] [address] 09/01/2020 10:18:56 09/01/2020 11:27:11 Irregular periods 87107158 N92.5 Body mass index 40+ - severely obese 337836633 Z68.42 Polycystic ovary syndrome 914110474 E28.2 Pain in pelvis 01553073 R10.2 [id number] Jhoan Patino DO Main Office [address] [place] [address] 08/13/2021 14:19:17 08/17/2021 13:04:53 Gynecologic examination 99933988 Z01.411 fasting blood work, pap Candidiasis of skin 4988 3006 B37.2 Irregular periods 085335 07 N92.6 Body mass index 40+ - severely obese 114102883 Z68.41 Screening for mental disorders 796880704 Z13.89 [id number] Jhoan Patino DO Main Office [address] [place] [address] 09/15/2022 14:17:13 09/15/2022 15:40:11 Candidiasis of skin 35327125 B37.2 Fatigue 19052554 R53.83 Type 2 nery betes mellitus without complication 726551711 E11.9 Gynecologi c examination 29837593 Z01.411 fasting blood work, pap (order given for labs at her local hospital), order for cologuard sent Screening for mental disorders 919971737 Z13.89 Irregular periods 203526 07 N92.5 labs. patient will schedule u/s after first of year [id number] Jhoan Patino DO Main Office [address] [place] [address] 10/07/2022 14:26:50 10/07/2022 15:22:15 Irregular periods 28223537 N92.5 Rib pain 492953373 R07.8 1 Body mass index 40+ - severely obese 730918030 Z68.42 Microscopic hematuria 19 6306407 R31.21 [id number] Jhoan Patino DO Main Office [address] [place] [address] 10/18/2022 13:48:44 10/18/2022 14:38:22 Pain in pelvis 43655737 R10.2 Irregular periods 636073 07 N92.5 Irritable bowel syndrome 98519696 K58.9 Rib pain 123930876 R07.8 1 f/u with pcp [id number] Jhoan Patino DO Main Office [address] [place] [address] 06/12/2024 09:24:48 06/12/2024 11:05:37 Gynecologic examination 46853436 Z01.411 Irregular periods 486230 07 N92.5 labs, u/s [id number] Jhoan Patino DO Main [place] [address] [place] [address] 08/21/2024 09:35:33 08/21/2024 10:43:31 Large ovary 66985116 N83.8 Pain in pelvis 13956329 R10.2 Irregular periods 844342 07 N92.5 [id number] Jhoan Patino DO Main Office [address] [place] [address] 10/10/2024 13:15:14 10/10/2024 14:48:45 Large ovary 07615596 N83.8 Endometrium thickened 44 3200045 R93.89 [id number] Jhoan Patino DO Main Office [address] [place] [address] 11/08/2024 15:29:29 11/08/2024 15:30:39 Endometrium thickened 017876399 R93.89 Large ovary 53973632 N83 .8 Stenosis of cervix 67859 006 N88.2 Abnormal u terine bleeding 3925196765 9100 N93.8 [id number] Jhoan Patino DO Main Office [address] [place] [address] 11/19/2024 13:49:40 11/19/2024 15:00:24 Endometrium thickened 298240953 R93.89 Stenosis of cervix 75261 006 N88.2 Abnormal u terine bleeding 2127200517 9100 N93.8 Postoperat donaldo nausea and vomiting 6170563 R11.2 [id number] Jhoan Patino DO Main [place] [address] [place] [address] 12/13/2024 15:38:07 12/13/2024 16:59:29 Postoperative visit 718136784 Z48.89 f/u 2weeks. given order for labs including amylase and lipase and UA to have done at her hospital at home (it was 5:00 at our office). reassuranc e. Secondary dysmenorrhea 87161712 N94.5 Left upper quadrant pain 062991674 R10.12 check amylase and lipase (she is taking mounjaro). Fatigue 69155569 R53.83 repeat labs, order given to patient, ua Menopausal symptom 60851 002 N95.1 check hormones Dysuria 89942596 R30.0 our UA strips do not detect blood in the urine, so order given to patient for UA reflex culture Candidiasis of skin 4988 3006 B37.2 nystatin powder Pain in pelvis 32473757 R10.2 may try ibuprofen 600mg or 800 mg instead of Ponstel if she wants. rest, hydrate. call if pain not helped with nsaids. uterus tender on exam will rx doxy [id number] Jhoan Patino DO Main Office [address] [place] [address] 12/17/2024 15:37:00 12/17/2024 15:40:56 Menorrhagia 236267040 N92.0 last cbc normal. if bleeding continues to be as heavy tomorrow (changing pads every 1-2 hours), call office. 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 Pain in pelvis 08944442 R10.2 may try ibuprofen 600mg or 800 mg instead of Ponstel if she wants. rest, hydrate. call if pain not helped with nsaids. [id number] Jhoan Patino DO Main Office [address] [place] [address] 12/27/2024 14:57:46 12/27/2024 16:25:56 Pain in pelvis 88354105 R10.2 may try ibuprofen 600mg or 800 mg instead of Ponstel if she wants. rest, hydrate. call if pain not helped with nsaids. uterus tender on exam will rx doxy Postoperative visit 1836 21645 Z48.89 Cyst of left ovary 34738 54727 2139286 N83.292 persistant , will recheck u/s next week Fatigue 16346348 R53.[address], will call for f/u Vaginal di scharge symptom 133265747 N89.8 [id number] Jhoan Patino DO Main Office [address] [place] [address] 01/03/2025 11:01:51 01/03/2025 12:13:09 Left lower quadrant pain 463841130 R10.32 Microscopic hematuria 19 8258066 R31.29 Noninflamm atory disorder of the female genital organs 8604956 N83.8 [id number] Jhoan Patino DO Main Office [address] [place] [address] 04/11/2025 11:04:59 04/11/2025 12:00:10 Health Concerns Section Related Observation LastModified by Organization Detai ls LastModified Time None Recorded Concern Status LastModified by Organization Details LastModified Time None Recorded Advance Directives Directive N: Payers Insurance Date Sequence Insurance Name Policy Number Policy Randolph Covered Member ID Randolph Member ID Guarantor Name 04/08/2025 1 [place] [employer] [id number] Su E Herman [id number] Su E Herman 12/17/2024 1 [place] Su E Herman [id number] Su E Herman 12/17/2024 1 [facility] [id number] Su E Herman [id number] Su E Herman 12/17/2024 1 [facility] [id number] Su E Herman [id number] Su E Herman 12/17/2024 1 [employer] ([place]) [id number] Su E Herman [id number] Su E Herman 12/17/2024 1 [facility] [id number] Su E Herman [id number] Su E Herman Notes Date Note Type Note Provider Name and Address Organization Details Recorded Time 12/13/2024 text/html Post-OpReported bypatient.Onset/Eagle ing:date of surgery: (11/23/2024) Quality:procedure: (Hysteroscopy, D&C, polypectomy) Context:reason for procedure: (thickened endometrium, abnormal uterine bleeding, cervical stenosis); operative findings: (irregular endometrium, polyp); operative complications: (none mentioned in report); postoperative complications: (none); pathology findings: (benign; report reviewed) Associated Symptoms:normal bowel function; no bleeding;fatigue;po or appetite;constipati on(after surgery);nausea(mil d);pain;fever(after surgery);lower extremity edema/pain(bilatera l lower extremity edema);dysuria/urin gail symptoms(has kidney stone) 3 week post op f/u. Patient had post op fever (101.5) for 3-4 days the week after surgery. She states she did call the office. She f/u with her PCP, blood work and UA, blood work normal per patient, UA blood. She does have hx of kidney stone. She feels bloated with fluids from surgery and has more swelling in lower extremities than usual, she did report an 8 lb increase since surgery. Unusual fatigue. No chest pains, pain in LE, or SOA. Some left pelvic pain, where she states she has ovarian cyst, dull, persistant. She did not have a period at the beginning of this month when she was due (surgery was 11/23), her periods have been regular this past year. Some dysuria, gross hematuria, hx of kidney stone. No pelvic bleeding or discharge. Some left side upper abd pain. Hx of painful periods. Red rash on backs of knees, under breasts, in groin, very itchy, she has been using nystatin cream. She is worried about the fatigue. DO Melisa [address], [place], [address], [facility], 12/29/2024 17:58:27 12/17/2024 text/html TELEHEALTH: her period started yesterday at first it was dark brown/ronaldo with mild cramping, today she started bleeding red with intense cramps, changing pads every 1-2 hours, with some small clots. She has taken Ponstel nsaid, and the cramps have lightened up some. Still with fatigue as last week. No dizziness or palpitations. labs were wnl last week, cbc normal. DO Melisa [address], [place], [address], [facility], 12/29/2024 21:03:12 12/27/2024 text/html Post-OpReported bypatient.Onset/Eagle ing:date of surgery: (11/23/2024) Quality:procedure: (Hysteroscopy, D&C, polypectomy) Context:reason for procedure: (thickened endometrium, abnormal uterine bleeding, cervical stenosis); operative findings: (irregular endometrium, polyp); operative complications: (none mentioned in report); postoperative complications: (none); pathology findings: (benign; report reviewed) Associated Symptoms:normal appetite; normal bowel function; no constipation; no nausea; no emesis; no fever; no bleeding;fatigue;pa in;lower extremity edema/pain(bilatera l lower extremity edema, improved some) 5 week postop: had four days of heavy bleeding 1 week ago and then resolved. left-sided pelvic pain, steady cramping with sharp pains. taking ponstel for pain, also feels like she is retaining fluid.vaginal pressure. states her bp is low for her, fatigue. Jhoan Patino, DO [address], [place], [address], [facility], 12/29/2024 17:56:13 OBGyn Episode No OBEpisode recorded.
--- OUTSIDE RECORDS SUMMARY | 2025-04-22 13:19 | XMS_ITS | Referral Summary ---
Author Organization [employer] ([place], [place], [place], [place]) Address [address] [place] [address] Care Team Providers Care Antenna Specialist Name Role Phone Geoff Olivo Primary Care Provider [phone] Allergies Active Allergy Reactions Criticality Noted Date Comments Adhesive Tape 11/22/2024 BLISTERS....PAPER TAPE ONLY Medications hydrocortisone (Anucort-HC) 25 mg suppository Insert 1 suppository (25 mg total) into the rectum every night as needed for hemorrhoids. Active aspirin 81 MG EC tablet Take 1 tablet (81 mg total) by mouth daily. Active atorvastatin (LIPITOR) 40 MG tablet Take 1 tablet (40 mg total) by mouth daily. Active ergocalciferol (DRISDOL) 1,250 mcg (50,000 unit) capsule Take 1 capsule (50,000 Units total) by mouth once a week. Active fluconazole (DIFLUCAN) 150 MG tablet Take 1 tablet (150 mg total) by mouth daily. Active gentamicin (GARAMYCIN) 0.3 % ophthalmic solution Administer 1 drop into both eyes 4 (four) times daily. Active ibuprofen (MOTRIN) 600 MG tablet Take 1 tablet (600 mg total) by mouth 3 (three) times daily as needed. Active metFORMIN (GLUCOPHAGE-XR) 500 MG 24 hr tablet Take 1 tablet (500 mg total) by mouth nightly. Active methocarbamoL (ROBAXIN) 500 MG tablet Take 1 tablet (500 mg total) by mouth 3 (three) times daily as needed for muscle spasms. Active Mounjaro 7.5 mg/0.5 mL pnij Inject 7.5 mg under the skin every 7 days Takes on Tuesday . Active nystatin (Nystop) 100,000 unit/gram powder Apply 1 Application topically 2 (two) times daily. Active RABEprazole (ACIPHEX) 20 mg EC tablet Take 1 tablet (20 mg total) by mouth daily. Active hydrocortisone 2.5 % lotion Apply 1 Application topically 2 (two) times daily. Active BIOTIN ORAL Take by mouth. Act donaldo 25/iron fum/folic/dha (-1 ORAL) Take by mouth. Activ e Social History Tobacco Use Types Packs/Day Years Used Date Smoking Tobacco: Never Smokeless Tobacco: Never Tobacco Cessation:Counseling Given: Not Answered Alcohol Use Standard Drinks/Week Comments Never 0 (1 standard drink = 0.6 oz pur e alcohol) Family and Community Support Answer David e Recorded Help with Day to Day Activities Not on file 10/21/2023 Feeling Lonely or Isolated Not on file 10/21 Educational Attainment Answer Date Lakhwinder rded Speak language other than Andorran at home Not on file 10/21/2023 Want help with school or training Not on file 10/21/2023 Substance Use Answer Date Recorded Used prescription meds for non-medical reasons N ot on file 10/21/2023 Used illegal drugs past 12 months Not on file 10/21/2023 Comments Unknown Sex and Gender Information Value Date Recorded Sex Assigned at Not on file Legal Sex Female 6:22 PM CDT Gender Identity Not on file Sexual Orientation Not on file Last Filed Vital Signs Vital Sign Reading Time Taken Comments Blood Pressure 117/71 11/23/2024 2:08 PM EST Pulse 63 11/23/2024 2:08 PM EST Temperature 36.9 C (98.5 F) 11/23/2024 1:43 PM EST Respiratory Rate 16 11/23/2024 2:08 PM EST Oxygen Saturation 100% 11/23/2024 2:08 PM EST Inhaled Oxygen Concentration - - Weight 102.1 kg (225 lb) 11/19/2024 3:30 PM EST Height 165.1 cm (5' 5 ) 11/19/2024 3:30 PM EST Body Mass Index 37.44 11/19/2024 3:30 PM EST Plan of Treatment Not on file Insurance BLUE CROSS/BLUE SHIELD Care Teams Antenna Specialist Relationship Specialty Start Date End Date Agnelesdebora [address] [place] [address] PCP - General 11/23/24
--- OUTSIDE RECORDS SUMMARY | 2025-04-22 13:19 | XMS_ITS | Clinical Summary ---
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 1 Active fexofenadine (Jaimie) 180 MG tablet 0 Active metFORMIN XR (Glucophage-XR) 500 MG 24 hr tablet metformin ER 500 mg tablet,extende d release 24 hr TAKE (1) TABLET BY MOUTH TWICE A DAY. 1 Active RABEprazole (Aciphex) 20 MG EC tablet Take 1 tablet (20 mg) by mouth 1 (one) time each day. 1 Active methocarbamol (Robaxin) 500 MG tablet Take 1 tablet (500 mg) by mouth 4 (four) times a day. Active ibuprofen 600 MG tablet TAKE (1) TABLET THREE TIMES DAILY NEEDED WITH FOOD. 90 tablet 2 3 Active ergocalciferol (Vitamin D-2) 1.25 MG (89054 UT) capsule Take 1 capsule (50,000 Units) by mouth 1 (one) time per week. Active DULoxetine (Cymbalta) [address] capsuleIndicati ons:Fibromyalgi a Take 1 capsule (20 mg) by mouth 1 (one) time each day. Do not crush or chew. 90 capsule 4 Active Active Problems Problem Noted Date Diagnosed Date Gastroesophageal reflux disease 04/20/2023 04/20/2023 Morbid obesity with body mass index (BMI) of 40. 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 01/01/2018 Irritable bowel syndrome 09/02/2015 Vitamin D deficiency 03/03/2015 Acute seasonal allergic rhinitis due to fungal s pores 01/01/2010 Immunizations Immunization Administration Dates Next Due Hep B, Unspecified 11/18/1995 Influenza, injectable, quadrivalent, preservativ e free 12/08/2019 Family History Medical History Relation Name Comments Broken bones Father Stanley Sutton Sr Diabetes Father Stanley Sutton Sr Arthritis Other 1 Diabetes Other 2 Hypertension Other 3 Other cancer Other 4 Relation Name Status Comments Father Stanley Sutton Sr Other 1 Other 2 Other 3 Other 4 Social History Tobacco Use Types Packs/Day Years Used Date Smoking Tobacco: Never Smokeless Tobacco: Never Tobacco Cessation:Counseling Given: Not Answered Alcohol Use Standard Drinks/Week Comments Never 0 (1 standard drink = 0.6 oz pur e alcohol) PHQ-2 Answer Date Recorded Patient Health Questionnaire-2 Score 0 05/23/2023 PHQ-2A Answer Date Recorded Patient Health Questionnaire-2 Score 0 05/23/2023 Comments No Sex and Gender Information Value Date Recorded Sex Assigned at Female 01/01/2022 11:34 AM EDT Legal Sex Female 8:18 PM EDT Gender Identity Female 01/01/2022 11:34 AM EDT Sexual Orientation Straight 01/01/2022 11 :34 AM EDT Last Filed Vital Signs Vital Sign Reading Time Taken Comments Blood Pressure 133/83 05/23/2023 3:20 PM EDT Pulse 83 05/23/2023 3:20 PM EDT Temperature 36.8 C (98.2 F) 05/23/2023 3:20 PM EDT Respiratory Rate 16 05/23/2023 3:20 PM EDT Oxygen Saturation 97% 05/23/2023 3:20 PM EDT Inhaled Oxygen Concentration - - Weight 124 kg (273 lb 9.5 oz) 05/23/2023 3:20 PM EDT Height 165.1 cm (5' 5 ) 05/23/2023 3:20 PM EDT Body Mass Index 45.53 05/23/2023 3:20 PM EDT Plan of Treatment Health Maintenance Due Date Last Done Comments [facility]-Diabetes: Hemoglobin A1C 1977 [facility]-/Child/Adol SDOH Screenings 1977 Diabetes: Dental Exam 1987 [facility]- SDOH Screenings 1995 [facility]-Adult SDOH Screenings 1995 [facility]-Hepatitis B Vaccines (2 of 3 - 3-dose series) 12/16/1995 11/18/1995 [facility]-DTaP,Tdap,and Td Vaccine s (1 - Tdap) 1996 [facility]-Pneumococcal Vaccine: Pediatrics (0 to 5 Years) and At-Risk Patients (6 to 49 Years) (1 of 2 - PCV) 1996 [facility]-Pap Smear 1998 [facility]-Cervical Cancer Screening 2007 [facility]-HPV/Cotest 2007 CT Colonography 2022 Colonoscopy 2022 FIT-DNA 2022 FIT 2022 FOBT 2022 Sigmoidoscopy 2022 [facility]-Colorectal Cancer Screening 2022 [facility]-Depression Screening 05/23/2024 05/23/2023 [facility]-[id number]-15 Vaccine ( - season) 2024 [facility]-Influenza Vaccine (#1) 2025 12/08/2019 [facility]-Zoster Vaccines (1 of 2) 2027 [facility]-HIV Screening Completed 11/18/2020 [facility]-Hepatitis C Screening Completed 2020, 11/18/2020 [facility]-Obesity Intervention Completed 023, 04/20/2023, 09/16/2022 HPV Vaccines Aged Out No longer eligi ble based on patient's age to complete this topic [facility]-HIB Vaccines Aged Out No longer e ligible based on patient's age to complete this topic [facility]-Hepatitis A Vaccines Aged Out No longer eligible based on patient's age to complete this topic [facility]-IPV Vaccines Aged Out No longer e ligible based on patient's age to complete this topic [facility]-Rotavirus Vaccines Aged Out No lo nger eligible based on patient's age to complete this topic Procedures Procedure Name Priority Date/Time Associated Diagnosis Comments HEPATITIS C ANTIBODY - ED W/REFLEX TO HCV QUANT PCR Routine 11/18/2020 11:56 AM EST HIV 1/2 ANTIBODY/ANTIGEN SCREEN WITH REFLEX TO HIV I/II DIFFERENTIATION Routine 11/18/2020 11:56 AM EST from Last 3 Months or Most Recently Relevant to Health Maintenance Results * HIV 1 & 2 Antibody/Antigen Screen (11/18/2020 11:56 AM EST) HIV 1 Result NONREACTIVE Screening for HIV 1 and 2 antibodies is NONREACTIVE. No confirmatory testing is required. SUNQUEST 11/18/2020 11:5 6 AM EST 11/18/2020 12:04 PM EST Aubrey Perera LAB BLOOD ORDERABLES Final Resul t Performing Organization Address [facility] de Phone Number SUNQUEST * [place] Hepatitis C Antibody (11/18/2020 11:56 AM EST) [place] Hepatitis C Ab Multiple SCM orders. Tests consolidated . 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
--- OUTSIDE RECORDS SUMMARY | 2025-04-22 13:19 | XMS_ITS | Continuity of Care Document ---
Author Organization [facility], [facility] Address [address] [place] [address] Assessment No assessment recorded. Plan of Treatment Reminders Order Date Submit Date Provider Last Modified By Organization Details Last Modified Time Details Appointments Annual Exam 2024 10:00A M Geoff Olivo APRN Not available Not available Not available Lab None recorded. Referral None recorded. Procedures None recorded. Surgeries None recorded. Imaging XR, knee, 3 view 2024 [facility] ([facility]), [address], [place], [address], 04/19/2025 10:55:14 Medication Orders prednison e 20 mg tablet [address] [facility], [address] [place], [address], 04/19/2025 10:55:31 nystatin 100,000 unit/gram topical cream 2024 025 [facility], [address] [place], [address], 04/19/2025 11:19:06 Patient TargetsNo targets recorded. Patient InstructionsNo instructions recorded. Reason for Referral None Reported. Problems Name Problem SNOMED Code Status Onset Date Resolution Date Notes Provider Name and Address Organization Details Recorded Time Environmen camilla allergy [id number] Active Catherine farris [facility] 09:30:39 Gastroesop hageal reflux disease 056556251 Active Catherine Sellers null, [place] - [facility] 09:36:48 Irritable bowel syndrome 87676193 Active Catherine Sellers null, [place] - [facility] 09:37:00 Chronic interstiti al cystitis 067127318 Active Catherine Sellers null, [place] - [facility] 09:37:35 Type 2 diabetes mellitus 11854647 Active Catherine Sellers null, [place] - [facility] 18:33:26 Acute sinusitis 59441326 Active 2022 Moi Jones, DOCUMENTATION DESIGNER [address], [place], [address] [place] [address] , [place] - [facility] 14:19:56 Seasonal allergic rhinitis 978615488 Active 2022 Moi Jones, DOCUMENTATION DESIGNER [address], [place], [address] [place] [address] , [place] - [facility] 3 14:22:58 Seasonal allergy 408661172 Active 2022 Moi Jones, DOCUMENTATION DESIGNER [address], [place], [address] [place] [address] , [place] - [facility] 14:37:20 Allergic conjunctiv itis of bilateral eyes [id number] 02 Active 2022 Moi Jones, DOCUMENTATION DESIGNER [address], [place], [address] [place] [address] , [place] - [facility] 3 14:40:53 Problem Notes None recorded. Procedures Surgical History Date Name Laterality Status Provider Name and Address Organization Details Recorded Time 01/17/20 25 Date of Last Mammogram completed Cheli Stears [place] - [facility] 01/16/2025 11:52:27 09/27/20 22 Date of Last Pap Smear completed Cheli Stears [place] - [facility] 11/30/2022 17:15:34 cholecystectomy completed Catherine Verito [place] - [facility] 08/17/2022 09:39:30 Imaging Results None recorded. Procedure Notes None recorded. Medical Equipment None Reported. Allergies No known drug allergies Medications Name Sig Start Date Stop Date Status Note LastModified by Organization Details LastModified Time amoxicillin 500 mg capsule TAKE ONE CAPSULE BY MOUTH TWICE DAILY FOR 10 DAYS. 11/29 completed Not Available Not Available Not Available medroxyprog esterone 10 mg tablet TAKE 1 TABLET BY MOUTH ONCE A DAY FOR 10 DAYS DIRECTED. 11/29 completed Not Available Not Available Not Available fluconazole 100 mg tablet TAKE 1 TABLET BY MOUTH ONCE A DAY. 06/23 completed Not Available Not Available Not Available atorvastati n 40 mg tablet TAKE 1 TABLET BY MOUTH ONCE A DAY. active Not Available Not Available No t Available methocarbam ol 500 mg tablet TAKE (1) TABLET BY MOUTH EVERY EIGHT HOURS NEEDED. 11/29 completed Not Available Not Available Not Available prednisone 10 mg tablet TAKE 5 TABS DAILY ON DAYS 1&2, 4 TABS A DAY DAYS 3&4, 3TABS DAILY ON DAYS 5&6, 2 TABS DAILY ON DAYS 7&8, 1 TAB ON DAYS 9&10 & 1/2 TAB ON DAYS 11 & 12 05/30 completed Not Available Not Available Not Available rabeprazole 20 mg tablet,sudha yed release TAKE 1 TABLET BY MOUTH ONCE DAILY. active Not Available Not Available No t Available doxycycline hyclate 100 mg capsule TAKE 1 CAPSULE BY MOUTH TWICE DAILY FOR 7 DAYS. 03/10 completed Not Available Not Available Not Available lidocaine 4 % topical patch Apply 1 patch twice a day by topical route as needed. 2022 active Not Available Not Available Not Avai lable azithromyci n 250 mg tablet TAKE 2 TABLETS TODAY THEN TAKE 1 TABLET DAILY FOR THE NEXT 4 DAYS 11/29 completed Not Available Not Available Not Available ibuprofen 800 mg tablet TAKE (1) TABLET BY MOUTH EVERY EIGHT HOURS NEEDED. active Not Available Not Available No t Available fluconazole 150 mg tablet TAKE 1 TABLET BY MOUTH ONCE A DAY. 06/23 completed Not Available Not Available Not Available hydrocodone 5 mg-acetamin ophen 325 mg tablet TAKE 1 TABLET BY MOUTH EVERY 4-6 HOURS active Not Available Not Available No t Available Nystop 100,000 unit/gram topical powder APPLY TO AFFECTED AREA TWICE DAILY active Not Available Not Available No t Available ondansetron HCl 8 mg tablet TAKE (1) TABLET BY MOUTH TWICE A DAY. active Not Available Not Available No t Available prednisone 20 mg tablet TAKE (1) TABLET BY MOUTH TWICE A DAY FOR 5 DAYS active Not Available Not Available No t Available Anucort-HC 25 mg suppository INSERT 1 SUPPOSITO RY TWICE A DAY BY RECTAL ROUTE FOR 14 DAYS. 11/29 completed Not Available Not Available Not Available aspirin 81 mg tablet,sudha yed release TAKE 1 TABLET BY MOUTH ONCE A DAY. active Not Available Not Available No t Available tramadol 50 mg tablet TAKE (1) TABLET BY MOUTH THREE TIMES DAILY NEEDED. 08/09 completed Not Available Not Available Not Available amoxicillin 500 mg tablet Take 1 tablet twice a day by oral route for 10 days. 08/02 completed Not Available Not Available Not Available ondansetron 8 mg disintegrat ing tablet DISSOLVE 1 TABLET BY MOUTH EVERY 8 HOURS NEEDED active Not Available Not Available No t Available ketorolac 10 mg tablet TAKE (1) TABLET BY MOUTH EVERY SIX HOURS NEEDED FOR PAIN FOR UP TO 5 DAYS 11/30 completed Not Available Not Available Not Available ceftriaxone 1 gram solution for injection Take 1 g by injection route. 08/02 completed Not Available Not Available Not Available mefenamic acid 250 mg capsule TAKE 2 CAPSULES BY MOUTH INITIALLY AND THEN 1 CAPSULES EVERY 6 HOURS NEEDED. active Not Available Not Available No t Available tamsulosin 0.4 mg capsule TAKE ONE CAPSULE BY MOUTH ONCE DAILY FOR 7 DAYS. STOP TAKING ONCE STONE IS EXPELLED. 11/30 completed Not Available Not Available Not Available phenazopyri dine 100 mg tablet TAKE ONE TABLET BY MOUTH 3 TIMES DAILY NEEDED FOR PAIN FOR UP TO 3 DAYS. 11/30 completed Not Available Not Available Not Available benzonatate 100 mg capsule TAKE (1) CAPSULE TWICE DAILY NEEDED. 12/09 completed Not Available Not Available Not Available cephalexin 500 mg capsule TAKE (1) CAPSULE BY MOUTH TWICE DAILY FOR 7 DAYS, START TOMORROW. 08/02 completed Not Available Not Available Not Available nystatin 100,000 unit/gram topical cream APPLY TO THE AFFECTED AREA(S) BY TOPICAL ROUTE 2 TIMES PER DAY active Not Available Not Available No t Available clotrimazol e-betametha sone 1 %-0.05 % topical cream APPLY TO AFFECTED AREA TWICE DAILY. 11/29 completed Not Available Not Available Not Available olopatadine 0.1 % eye drops INSTILL 1 DROP INTO AFFECTED EYE(S) BY OPHTHALMI C ROUTE 2 TIMES PER DAY AT AN INTERVAL OF 6 TO 8 HOURS 11/29 completed Not Available Not Available Not Available montelukast 10 mg tablet TAKE 1 TABLET BY MOUTH ONCE A DAY. active Not Available Not Available No t Available ceftriaxone 500 mg solution for injection 1 gram today 05/30 completed Not Available Not Available Not Available metoprolol succinate ER 25 mg tablet,exte nded release 24 hr TAKE 1 TABLET BY MOUTH ONCE A DAY. active Not Available Not Available No t Available ergocalcife rol (vitamin D2) 1,250 mcg (50,000 unit) capsule TAKE 1 CAPSULE BY MOUTH ONCE A WEEK. active Not Available Not Available No t Available dexamethaso ne sodium phosphate 4 mg/mL injection solution Inject 1 mL as needed by intramusc ular route. 04/20 completed Not Available Not Available Not Available ibuprofen 600 mg tablet TAKE (1) TABLET THREE TIMES DAILY NEEDED WITH FOOD. 11/29 completed Not Available Not Available Not Available levofloxaci n 500 mg tablet TAKE 1 TABLET BY MOUTH ONCE DAILY FOR 5 DAYS. 04/19 completed Not Available Not Available Not Available letrozole 2.5 mg tablet TAKE (3) TABLETS BY MOUTH DAILY ON DAYS 4-8. 11/29 completed Not Available Not Available Not Available scopolamine 1 mg over 3 days transdermal patch APPLY 1 PATCH TO SKIN EVERY 72 HOURS NEEDED 11/29 completed Not Available Not Available Not Available methylpredn isolone 4 mg tablets in a dose pack TAKE 6 TABS ON DAY 1, TAKE 5 TABS ON DAY 2, TAKE 4 TABS ON DAY 3, TAKE 3 TABS ON DAY 4, TAKE 2 TABS ON DAY 5, TAKE 1 ON DAY 6. TAKE WITH FOOD. 03/23 completed Not Available Not Available Not Available hydrocodone 10 mg-chlorphe niramine 8 mg/5 mL oral susp extend.rel 12hr TAKE 1 TEASPOONF UL EVERY 12 HOURS NEEDED 06/23 completed Not Available Not Available Not Available ondansetron 4 mg disintegrat ing tablet TAKE ONE TABLET BY MOUTH EVERY 4 HOURS NEEDED FOR NAUSEA FOR UP TO 7 DAYS. 12/09 completed Not Available Not Available Not Available cefdinir 300 mg capsule TAKE (1) CAPSULE BY MOUTH TWICE DAILY. 05/30 completed Not Available Not Available Not Available fluticasone propionate 50 mcg/actuati on nasal spray,suspe nsion [place] 1 spray every day by intranasa l route. active Not Available Not Available No t Available metformin ER 500 mg tablet,exte nded release 24 hr TAKE (1) TABLET BY MOUTH TWICE A DAY. active Not Available Not Available No t Available lisinopril 2.5 mg tablet TAKE 1 TABLET BY MOUTH ONCE A DAY. 01/18 completed Not Available Not Available Not Available colestipol 1 gram tablet TAKE 1 TABLET BY MOUTH ONCE A DAY. 08/17 completed Not Available Not Available Not Available amoxicillin 875 mg-potassiu m clavulanate 125 mg tablet TAKE 1 TABLET BY MOUTH EVERY 12 HOURS 08/09 completed Not Available Not Available Not Available oxycodone 5 mg tablet TAKE 1 TABLET BY MOUTH EVERY 6 HOURS NEEDED FOR PAIN FOR UP TO 3 DAYS 11/30 completed Not Available Not Available Not Available metoprolol tartrate 25 mg tablet Take 0.5 tablets every day by oral route for 30 days. 08/02 completed Not Available Not Available Not Available nitrofurant oin monohydrate /macrocryst als 100 mg capsule TAKE 1 CAPSULE BY MOUTH EVERY 12 HOURS 11/08 completed Not Available Not Available Not Available duloxetine 20 mg capsule,del ayed release TAKE (1) CAPSULE BY MOUTH ONCE A DAY. 01/18 completed Not Available Not Available Not Available Mounjaro 7.5 mg/0.5 mL subcutaneou s pen injector INJECT 7.5 MG UNDER THE SKIN ONCE WEEKLY. active Not Available Not Available No t Available Mounjaro 5 mg/0.5 mL subcutaneou s pen injector INJECT 5MG SUB-Q WEEKLY 11/15 completed Not Available Not Available Not Available Mounjaro 10 mg/0.5 mL subcutaneou s pen injector INJECT 10 MG UNDER THE SKIN ONCE WEEKLY. 08/02 completed Not Available Not Available Not Available Mounjaro 2.5 mg/0.5 mL subcutaneou s pen injector Inject 0.5 mL by subcutane ous route as directed. 11/15 completed Not Available Not Available Not Available Vitals Date Recorded Body height Respiratory rate Body mass index (BMI) Body weight Body temperature Oxygen saturation Oxygen saturation in Arterial blood by Pulse oximetry Heart rate Systolic And Diastolic Provider Name and Address Organization Details Last Updated DateTime 5 165.1 cm 18 /min 36.8 kg/m2 312175. 91 g 97.9 [degF] 99 % 99 % 74 /min 124/76 mm[Hg] Cheli Coreas [place] - [facility] 10:08:56 Social History Question Answer Notes LastModified by Organizat ion Details LastModified Time Tobacco Smoking Status Never Smoker Catherine farris, [place] - [facility] 08/17/2022 09:42:53 Do You Have An Advance Directive? No Information n ot available 11/30/2022 Are You Blind Or Do You Have Difficulty Seeing? No Information n ot available 11/30/2022 What Is Your Level Of Caffeine Consumption? None Information not available 08/17/2022 In The 14 Days Before Symptom Onset, Have You Had Close Contact With A Laboratory-confirm ed COVID-19 While That Case Was Ill? No Information n ot available 05/30/2023 In The 14 Days Before Symptom Onset, Have You Had Close Contact With A Person Who Is Under Investigation For COVID-19 While That Person Was Ill? No Information not available 05/30/2023 Have You Been To An Area Known To Be High Risk For COVID-19? No Information not available 05/30/2023 Are You Deaf Or Do You Have Serious Difficulty Hearing? No Information not available 11/30/2022 What Type Of Diet Are You Following? REGULAR Information n ot available 11/30/2022 Have You Processed Blood Or Body Fluids From An Ebola Virus Disease Patient Without Appropriate PPE? No Information not available 05/30/2023 Do You Reside In Or Have You Traveled To An Area Where Ebola Virus Transmission Is Active? No Information not available 05/30/2023 What Is The Highest Grade Or Level Of School You Have Completed Or The Highest Degree You Have Received? [id number] Information not available 11/30/2022 Have There Been Any Changes To Your Family Or Social Situation? No Information no t available 11/30/2022 What Is The Fluoride Status Of Your Home? Unknown Information not available 11/30/2022 Have You Recently Or Are You Planning To Travel To An Area With Zika Virus? No Information not available 05/30/2023 Do You Have A Medical Power Of Balancing Machine Operator? No Information not available 11/30/2022 What Was The Date Of Your Most Recent Tobacco Screening? 11/29/2024 Information not available 11/29/2024 What Is Your Relationship Status? Single Information not available 11/30/2022 Do You Have Smoke And Carbon Monoxide Detectors In Your Home? Yes Information not available 11/30/2022 Are You Passively Exposed To Smoke? No Information no t available 11/30/2022 Has Tobacco Cessation Counseling Been Provided? No Information not available 12/09/2022 Do You Have Difficulty Walking Or Climbing Stairs? No Information not available 11/30/2022 Sex: Female Functional Status Question Answer Note LastModified by Organizat ion Details LastModified Time Do you use any illicit or recreational drugs? No Information not available 08/17/2022 What is your level of alcohol consumption? None Information not available 08/17/2022 Are you currently employed? Yes Information not available 11/30/2022 Do you have transportation difficulties? No Information not available 11/30/2022 Are you able to walk? YESWOREST Information not available 11/30/2022 Do you have difficulty doing errands alone? No Information not available 11/30/2022 Are you able to care for yourself? Yes Information n ot available 11/30/2022 What is your occupation? [employer] de[employer] of [employer] Information not available 11/30/2022 Do you have difficulty dressing or bathing? No Information not available 11/30/2022 What is your exercise level? None Information not available 11/30/2022 Mental Status Question Answer Note LastModified by Organizat ion Details LastModified Time Do you feel stressed (tense, restless, nervous, or anxious, or unable to sleep at night)? [id number] Information not available 11/30/2022 Do you have difficulty concentrating, remembering or making decisions? No Information no t available 11/30/2022 Family History Relationship Description Onset Age of this Age Resolved Age Notes LastModified by Organization Details LastModified Time Father No current problems or disability [email or web address] Not available 11/30 17:15:42 Mother No current problems or disability [email or web address] Not available 11/30 17:15:42 Medical History No medical history recorded. Gynecological History Statement/Question Response Menses Monthly Y Date of Last Pap Smear 09/27/2022 Date of Last Mammogram 01/16/2025 LMP Approximate Date of LMP 03/22/2024 Obstetrics History GPAL:G 0 P 0 0 0 0 Immunizations Vaccine Type Date Status Note Provider Nam e and Address Organization Details Recorded Time Tdap 4 completed Geoff Olivo APRN [address], [place], [address], [place] - [facility] 11/29/2023 13:15:00 Influenza, split virus, quadrivalent, PF 0 completed Catherine farris, [place] - [facility] 08/17/2022 09:26:12 Hep B, unspecified formulation 6 completed Catherine farris, [place] - [facility] 08/17/2022 09:26:12 Past Encounters Encounter ID Performer Location Encounter Start Date Encounter Closed Date Diagnosis/Indication Diagnosis SNOMED-CT Code Diagnosis ICD10 Code Diagnosis Note [id number] Geoff Olivo APRN [address] [address] 04/19/2025 09:43:17 04/19/2025 10:52:03 Pain of knee region 1642030066 M25.561 motrin/tyl enoliceres tprednison efollow up with orthoif no improvemen t return Candidiasis of skin 4988 3006 B37.2 Health Concerns Section Related Observation LastModified by Organization Detai ls LastModified Time None Recorded Concern Status LastModified by Organization Details LastModified Time None Recorded Payers Encounter Date Sequence Insurance Name Policy Number Policy Randolph Covered Member ID Randolph Member ID Guarantor Name 04/19/2025 1 [employer]: JEY SAMAN[place] OF [place] - [employer] [id number] Evita Sutton [id number] Su Sutton Notes Date Note Type Note Provider Name and Address Organization Details Recorded Time 04/19/2025 text/html 50 year old female who presents to the office today with concerns of right knee pain-warm to touch, twisted knee while working in the garden. she has an appt with ortho on Tuesday with Dr. Castro's office, she needs an xray orderedalso has concerns of rash under right breast Geoff Olivo, DOCUMENTATION DESIGNER [address], [place], [address], [place] - [facility] 04/19/2025 10:55:25 OBGyn Episode No OBEpisode recorded.
--- OUTSIDE RECORDS SUMMARY | 2025-04-22 13:19 | XMS_ITS | Encounter Summary ---
Author Organization Healthcare Address [address] [place] [address] Care Team Providers Care Ruffling Hemmer Automatic Name Role Phone Rosy Singh APRN Primary Care Provider Reason for Visit * Reason Comments Med Refill Encounter Details Date Type Department Care Team (Late st Contact Info) Description 03/24/2024 Refill Medical Office [facility] [address], [address] [place] [address] Warren Otero MD [address] [place] [address] Social History Tobacco Use Types [...] AM EDT documented as of this encounter Plan of Treatment Not on file documented as of this encounter Visit Diagnoses Not on filedocumented in this encounter Additional Health Concerns Assessment Noted Time A fall risk assessment has been complete d for the patient 05/23/2023 3:24 PM EDT A Body Mass Index follow-up plan has been documented for the patient 05/23/2023 3:57 PM EDT documented as of this encounter Care Teams Ruffling Hemmer Automatic Relationship Specialty Start Date End Date Rosy Singh APRN [address] [place] [address] PCP - General 02/13/21 documented as of this encounter
--- OUTSIDE RECORDS SUMMARY | 2025-04-22 13:20 | XMS_ITS | Data Portability ---
Author Organization Replaced by [facility] Address [address] [place] [address] Assessment No assessment recorded. Plan of Treatment Reminders Order Date Submit Date Provider Last Modified By Organization Details Last Modified Time Details Appointments Annual Exam 20 2024 10:00A M Geoff Olivo APRN Not available Not available Not available Lab CMP, serum or plasma 2024 025 [facility], [address], [address], [place], [address], 11/30/2024 11:07:46 CBC w/ auto diff 2024 025 [facility], [address], [address], [place], [address], 11/30/2024 11:07:46 rapid flu (A+B) 2024 025 [facility], [address] [place] [address], [phone], 11/29/2024 16:30:46 rapid SARS CoV + SARS CoV 2 Ag, QL IA, respirato ry specimen 2024 025 [facility], [address] [place] [address], [phone], 11/29/2024 16:30:54 cobalamin and folate panel, serum 2024 025 [facility], [address], [address], [place], [address], 11/30/2024 11:07:47 vitamin D, 25-hydrox y, total, serum 2024 025 [facility], [address], [address], [place], [address], 11/30/2024 11:07:47 urinalysi s, dipstick 2023 024 [facility], [address] [place] [address], [phone], 06/15/2024 17:01:52 test, urine 2023 024 [facility], [address] [place] [address], [id number], 06/15/2024 17:01:52 culture, urine 2023 024 [facility], [address], [address], [place], [address], 06/17/2024 03:06:06 rapid flu (A+B) 2023 024 [facility], [address] [place] [address], [phone], 06/15/2024 17:01:52 rapid SARS CoV + SARS CoV 2 Ag, QL IA, respirato ry specimen 2023 024 [facility], [address] [place] [address], [phone], 06/15/2024 17:01:52 Referral None recorded. Procedures None recorded. Surgeries None recorded. Imaging XR, knee, 3 view 2024 025 [facility] ([facility]), [address] [place], [place] [address]y [address], [place], [address], 04/19/2025 10:55:14 Medication Orders prednison e 20 mg tablet 2024 025 [facility], [address] [place], [address], 04/19/2025 10:55:31 nystatin 100,000 unit/gram topical cream 2024 025 [facility], [address] [place], [address], 04/19/2025 11:19:06 rabeprazo le 20 mg tablet,de layed release 2024 025 [facility], [address] [place], [address], 11/29/2024 16:03:47 levofloxa helena 500 mg tablet 2024 025 [facility], [address] [place], [address], 04/19/2025 10:21:46 Zithromax Z-Javi 250 mg tablet 2023 024 [facility], [address] [place] [address], [place], [address], 11/29/2024 15:20:07 ceftriaxo ne 1 gram solution for injection 2023 024 stacy Not available 08/02/2024 11:25:52 cephalexi n 500 mg capsule 2023 024 [facility], [address] [place], [address], 08/02/2024 11:37:49 prednison e 20 mg tablet 2023 024 [email or web address], [address] [place], [address], 11/29/2024 15:01:58 levofloxa helena 500 mg tablet 2023 024 [facility], [address] [place], [address], 04/19/2025 10:13:19 Patient TargetsNo targets recorded. Patient InstructionsNo instructions recorded. Reason for Referral None Reported. Results Created Date Observation Date Name Description Value Unit Range Abnormal Flag Note LastModifiedBy Organization Detail LastModifiedTime 04/20/20 24 04/21/2024 TSH+F REE T4 TSH 0.451 uIU/m L 0.450- 4.500 Not Available [facility] ([facility]) [address] [place], [address], 04/21/2024 10:07:52 04/20/20 24 04/21/2024 TSH+F REE T4 T4,free(dire ct) 1.24 NG/dL 0.82-1 .77 Not Available [facility] ([facility]) [address] [place], [address], 04/21/2024 10:07:52 04/20/20 24 04/21/2024 CBC WITH DIFFE RENTI AL/PL ATELE T WBC 7.4 x10e3 /uL 3.4-10 .8 Not Available [facility] ([facility]) [address] [place], [address], 04/21/2024 10:07:52 04/20/20 24 04/21/2024 CBC WITH DIFFE RENTI AL/PL ATELE T RBC 4.26 x10e6 /uL 3.77-5 .28 Not Available [facility] ([facility]) [address] [place], [address], 04/21/2024 10:07:52 04/20/20 24 04/21/2024 CBC WITH DIFFE RENTI AL/PL ATELE T hemoglobin 12.9 g/dL 11.1-1 5.9 Not Available [facility] ([facility]) [address] [facility], [place], [address], 04/21/2024 10:07:52 04/20/20 24 04/21/2024 CBC WITH DIFFE RENTI AL/PL ATELE T hematocrit 40.7 % 34.0-4 6.6 Not Available [facility] ([facility]) [address] [facility], [place], [address], 04/21/2024 10:07:52 04/20/20 24 04/21/2024 CBC WITH DIFFE RENTI AL/PL ATELE T MCV 96 fL 79-97 Not Available [facility] ([facility]) [address] [facility], [place], [address], 04/21/2024 10:07:52 04/20/20 24 04/21/2024 CBC WITH DIFFE RENTI AL/PL ATELE T MCH 30.3 pg 26.6-3 3.0 Not Available [facility] ([facility]) [address] [facility], [place], [address], 04/21/2024 10:07:52 04/20/20 24 04/21/2024 CBC WITH DIFFE RENTI AL/PL ATELE T MCHC 31.7 g/dL 31.5-3 5.7 Not Available [facility] ([facility]) [address] [place], [address], 04/21/2024 10:07:52 04/20/20 24 04/21/2024 CBC WITH DIFFE RENTI AL/PL ATELE T RDW 12.6 % 11.7-1 5.4 Not Available [facility] ([facility]) [address] [place], [address], 04/21/2024 10:07:52 04/20/20 24 04/21/2024 CBC WITH DIFFE RENTI AL/PL ATELE T platelets 250 x10e3 /uL 150-45 0 Not Available [facility] ([facility]) [address] [place], [address], 04/21/2024 10:07:52 04/20/20 24 04/21/2024 CBC WITH DIFFE RENTI AL/PL ATELE T neutrophils 52 % not estab. Not Available [facility] ([facility]) [address] [facility], [place], [address], 04/21/2024 10:07:52 04/20/20 24 04/21/2024 CBC WITH DIFFE RENTI AL/PL ATELE T lymphs 38 % not estab. Not Available [facility] ([facility]) [address] [facility], [place], [address], 04/21/2024 10:07:52 04/20/20 24 04/21/2024 CBC WITH DIFFE RENTI AL/PL ATELE T monocytes 7 % not estab. Not Available [facility] ([facility]) [address] [facility], [place], [address], 04/21/2024 10:07:52 04/20/20 24 04/21/2024 CBC WITH DIFFE RENTI AL/PL ATELE T eos 3 % not estab. Not Available [facility] ([facility]) [address] [facility], [place], [address], 04/21/2024 10:07:52 04/20/20 24 04/21/2024 CBC WITH DIFFE RENTI AL/PL ATELE T basos 0 % not estab. Not Available [facility] ([facility]) [address] [facility], [place], [address], 04/21/2024 10:07:52 04/20/20 24 04/21/2024 CBC WITH DIFFE RENTI AL/PL ATELE T immature cells SOCIOLOGY RESEARCH ASSISTANT Not Available [facility] ([facility]) [address] [facility], [place], [address], 04/21/2024 10:07:52 04/20/20 24 04/21/2024 CBC WITH DIFFE RENTI AL/PL ATELE T neutrophils (absolute) 3.8 x10e3 /uL 1.4-7. 0 Not Available [facility] ([facility]) [address] [place], [address], 04/21/2024 10:07:52 04/20/20 24 04/21/2024 CBC WITH DIFFE RENTI AL/PL ATELE T lymphs (absolute) 2.8 x10e3 /uL 0.7-3. 1 Not Available [facility] ([facility]) [address] [facility], [place], [address], 04/21/2024 10:07:52 04/20/20 24 04/21/2024 CBC WITH DIFFE RENTI AL/PL ATELE T monocytes(ab solute) 0.5 x10e3 /uL 0.1-0. 9 Not Available [facility] ([facility]) [address] [facility], [place], [address], 04/21/2024 10:07:52 04/20/20 24 04/21/2024 CBC WITH DIFFE RENTI AL/PL ATELE T eos (absolute) 0.2 x10e3 /uL 0.0-0. 4 Not Available [facility] ([facility]) [address] [place], [address], 04/21/2024 10:07:52 04/20/20 24 04/21/2024 CBC WITH DIFFE RENTI AL/PL ATELE T baso (absolute) 0.0 x10e3 /uL 0.0-0. 2 Not Available [facility] ([facility]) [address] [place], [address], 04/21/2024 10:07:52 04/20/20 24 04/21/2024 CBC WITH DIFFE RENTI AL/PL ATELE T immature granulocytes 0 % not estab. Not Available [facility] ([facility]) [address] [place], [address], 04/21/2024 10:07:52 04/20/20 24 04/21/2024 CBC WITH DIFFE RENTI AL/PL ATELE T immature grans (abs) 0.0 x10e3 /uL 0.0-0. 1 Not Available [facility] ([facility]) [address] [facility], [place], [address], 04/21/2024 10:07:52 04/20/20 24 04/21/2024 CBC WITH DIFFE RENTI AL/PL ATELE T NRBC SOCIOLOGY RESEARCH ASSISTANT Not Available [facility] ([facility]) [address] [facility], [place], [address], 04/21/2024 10:07:52 04/20/20 24 04/21/2024 CBC WITH DIFFE RENTI AL/PL ATELE T hematology comments: SOCIOLOGY RESEARCH ASSISTANT Not Available [facility] ([facility]) [address] [facility], [place], [address], 04/21/2024 10:07:52 04/20/20 24 04/21/2024 COMP. METAB OLIC PANEL (14) glucose 80 mg/dL 70-99 Not Available [facility] ([facility]) [address] [facility], [place], [address], 04/21/2024 10:07:53 04/20/20 24 04/21/2024 COMP. METAB OLIC PANEL (14) BUN 10 mg/dL 6-24 Not Available [facility] ([facility]) [address] [facility], [place], [address], 04/21/2024 10:07:53 04/20/20 24 04/21/2024 COMP. METAB OLIC PANEL (14) creatinine 0.73 mg/dL 0.57-1 .00 Not Available [facility] ([facility]) [address] [facility], [place], [address], 04/21/2024 10:07:53 04/20/20 24 04/21/2024 COMP. METAB OLIC PANEL (14) eGFR 102 mL/mi n/1.7 3 >59 Not Available [facility] ([facility]) [address] [facility], [place], [address], 04/21/2024 10:07:53 04/20/20 24 04/21/2024 COMP. METAB OLIC PANEL (14) BUN/creatini ne ratio 14 9-23 Not Available [facility] ([facility]) [address] [facility], [place], [address], 04/21/2024 10:07:53 04/20/20 24 04/21/2024 COMP. METAB OLIC PANEL (14) sodium 140 mmol/ L 134-14 4 Not Available [facility] ([facility]) [address] [facility], [place], [address], 04/21/2024 10:07:53 04/20/20 24 04/21/2024 COMP. METAB OLIC PANEL (14) potassium 4.3 mmol/ L 3.5-5. 2 Not Available [facility] ([facility]) [address] [place], [address], 04/21/2024 10:07:53 04/20/20 24 04/21/2024 COMP. METAB OLIC PANEL (14) chloride 105 mmol/ L 96-106 Not Available [facility] ([facility]) [address] [place], [address], 04/21/2024 10:07:53 04/20/20 24 04/21/2024 COMP. METAB OLIC PANEL (14) carbon dioxide, total 24 mmol/ L 20-29 Not Available [facility] ([facility]) [address] [place], [address], 04/21/2024 10:07:53 04/20/20 24 04/21/2024 COMP. METAB OLIC PANEL (14) calcium 9.4 mg/dL 8.7-10 .2 Not Available [facility] ([facility]) [address] [place], [address], 04/21/2024 10:07:53 04/20/20 24 04/21/2024 COMP. METAB OLIC PANEL (14) protein, total 6.4 g/dL 6.0-8. 5 Not Available [facility] ([facility]) [address] [facility] [place], [address], 04/21/2024 10:07:53 04/20/20 24 04/21/2024 COMP. METAB OLIC PANEL (14) albumin 4.0 g/dL 3.9-4. 9 Not Available [facility] ([facility]) [address] [facility] [place], [address], 04/21/2024 10:07:53 04/20/20 24 04/21/2024 COMP. METAB OLIC PANEL (14) globulin, total 2.4 g/dL 1.5-4. 5 Not Available [facility] ([facility]) [address] [facility] [place], [address], 04/21/2024 10:07:53 04/20/20 24 04/21/2024 COMP. METAB OLIC PANEL (14) bilirubin, total 0.4 mg/dL 0.0-1. 2 Not Available [facility] ([facility]) [address] [facility] [place], [address], 04/21/2024 10:07:53 04/20/20 24 04/21/2024 COMP. METAB OLIC PANEL (14) alkaline phosphatase 97 IU/L 44-121 Not Available [facility] ([facility]) [address] [facility], [place], [address], 04/21/2024 10:07:53 04/20/20 24 04/21/2024 COMP. METAB OLIC PANEL (14) AST (SGOT) 15 IU/L 0-40 Not Available [facility] ([facility]) [address] [facility], [place], [address], 04/21/2024 10:07:53 04/20/20 24 04/21/2024 COMP. METAB OLIC PANEL (14) ALT (SGPT) 16 IU/L 0-32 Not Available [facility] ([facility]) [address] [facility], [place], [address], 04/21/2024 10:07:53 04/20/20 24 04/21/2024 IRON AND TIBC iron bind.cap.(TI BC) 331 ug/dL 250-45 0 Not Available [facility] ([facility]) [address] [facility], [place], [address], 04/21/2024 10:07:53 04/20/20 24 04/21/2024 IRON AND TIBC UIBC 271 ug/dL 131-42 5 Not Available [facility] ([facility]) [address] [facility], [place], [address], 04/21/2024 10:07:53 04/20/20 24 04/21/2024 IRON AND TIBC iron 60 ug/dL 27-159 Not Available [facility] ([facility]) [address] [facility], [place], [address], 04/21/2024 10:07:53 04/20/20 24 04/21/2024 IRON AND TIBC iron saturation 18 % 15-55 Not Available [facility] ([facility]) [address] [place], [address], 04/21/2024 10:07:53 04/20/20 24 04/21/2024 VITAM IN B12 AND FOLAT E vitamin B12 475 pg/mL 232-12 45 Not Available [facility] ([facility]) [address] [place], [address], 04/21/2024 10:07:54 04/20/20 24 04/21/2024 VITAM IN B12 AND FOLAT E folate (folic acid), serum >20.0 NG/mL >3.0 A serum folat e ariane ntrat ion of less than 3.1 ng/mL is consi dered to repre sent clini terese defic iency . Not Available [facility] ([facility]) [address] [facility], [place], [address], 04/21/2024 10:07:54 04/20/20 24 04/21/2024 HEMOG LOBIN A1C hemoglobin A1C 5.7 % 4.8-5. 6 above high normal Predi abete s: 5.7 - 6.4 Diabe denisse: >6.4 Glyce jan contr ol for adult s with diabe denisse: <7.0 Not Available [facility] ([facility]) [address] [facility], [place], [address], 04/21/2024 10:07:54 04/20/20 24 04/21/2024 VITAM IN D, 25-HY DROXY vitamin D, 25-hydroxy 88.0 NG/mL 30.0-1 00.0 Vitam in D defic iency has been defin ed by the Insti tute of Medic ine and an Endoc rine Socie ty pract ice guide line as a level of serum 25-OH vitam in D less than 20 ng/mL (1,2) . The Endoc rine Socie ty went on to [facility] er defin e vitam in D insuf ficie ncy as a level betwe en 21 and 29 ng/mL (2). 1. IOM (Inst itute of Medic ine). 2009. Dieta ry refer ence abigail es for calci um and D. Riky abebe DC: The Natio nal [facility] . 2. Yvette delgado MF, Dexter lopes [place], Joey off-F errar i SHRESTHA, et al. Evalu ation , treat ment, and preve ntion of vitam in D defic iency : an Endoc rine Socie ty clini terese pract ice guide line. JCEM. 2010; 96(7) :1911 -30. Not Available [facility] ([facility]) [address] [facility], [place], [address], 04/21/2024 10:07:55 06/15/20 24 06/17/2024 URINE CULTU RE, ROUTI NE urine culture, routine Final report Not Available [facility] ([facility]) [address] [facility], [place], [address], 06/17/2024 03:06:00 06/15/20 24 06/17/2024 URINE CULTU RE, ROUTI NE result 1 COMMEN T Cultu re shows less than 10,00 0 colon y formi ng units of bacte heidi per bairon liter of urine . This colon y count is not gener ally consi dered to be clini chiquita signi fican t. Not Available [facility] ([facility]) [address] [facility], [place], [address], 06/17/2024 03:06:00 06/15/20 24 06/15/2024 rapid SARS CoV + SARS CoV 2 Ag, QL IA, respi rator y speci men SARS CoV antigen Negati ve Not Available [address], [address], 06/15/2024 16:38:19 06/15/20 24 06/15/2024 rapid flu (A+B) Flu negati ve Not Available [address], [address], 06/15/2024 16:38:02 06/15/20 24 06/15/2024 rapid flu (A+B) Type Both A & B Not Available [address], [address], 06/15/2024 16:38:02 06/15/20 24 06/15/2024 urina lysis , dipst ick Leukocytes Negati ve Not Available [address], [address], 06/15/2024 16:38:27 06/15/20 24 06/15/2024 urina lysis , dipst ick Nitrite negati ve Not Available [address], [address], 06/15/2024 16:38:27 06/15/20 24 06/15/2024 urina lysis , dipst ick Urobilinogen .2 Not Available [facility] [address], [address], 06/15/2024 16:38:27 06/15/20 24 06/15/2024 urina lysis , dipst ick Protein Negati ve Not Available [address], [address], 06/15/2024 16:38:27 06/15/20 24 06/15/2024 urina lysis , dipst ick pH 8.5 Not Available [address], [address], 06/15/2024 16:38:27 06/15/20 24 06/15/2024 urina lysis , dipst ick Blood Small Not Available [address], [address], 06/15/2024 16:38:27 06/15/20 24 06/15/2024 urina lysis , dipst ick Specific [place] 1.015 Not Available [address], [address], 06/15/2024 16:38:27 06/15/20 24 06/15/2024 urina lysis , dipst ick Ketone Negati ve Not Available [address], [address], 06/15/2024 16:38:27 06/15/20 24 06/15/2024 urina lysis , dipst ick Bilirubin Negati ve Not Available [address], [address], 06/15/2024 16:38:27 06/15/20 24 06/15/2024 urina lysis , dipst ick Glucose Negati ve Not Available [address], [address], 06/15/2024 16:38:27 06/15/20 24 06/15/2024 urina lysis , dipst ick Appearance Clear Not Available [address], [address], 06/15/2024 16:38:27 06/15/20 24 06/15/2024 urina lysis , dipst ick Color Yellow Not Available [address], [address], 06/15/2024 16:38:27 06/15/20 24 06/15/2024 pregn sharon test, urine HCG negati ve Not Available [address], [address], 06/15/2024 16:38:39 11/29/19 25 11/30/2024 CBC WITH DIFFE RENTI AL/PL ATELE T WBC 7.3 x10e3 /uL 3.4-10 .8 normal Not Available [facility] ([facility]) [address] [facility], [place], [address], 11/30/2024 11:07:46 11/29/19 25 11/30/2024 CBC WITH DIFFE RENTI AL/PL ATELE T RBC 4.50 x10e6 /uL 3.77-5 .28 normal Not Available [facility] ([facility]) [address] [place], [address], 11/30/2024 11:07:46 11/29/19 25 11/30/2024 CBC WITH DIFFE RENTI AL/PL ATELE T hemoglobin 14.1 g/dL 11.1-1 5.9 normal Not Available [facility] ([facility]) [address] [place], [address], 11/30/2024 11:07:46 11/29/19 25 11/30/2024 CBC WITH DIFFE RENTI AL/PL ATELE T hematocrit 43.9 % 34.0-4 6.6 normal Not Available [facility] ([facility]) [address] [place], [address], 11/30/2024 11:07:46 11/29/19 25 11/30/2024 CBC WITH DIFFE RENTI AL/PL ATELE T MCV 98 fL 79-97 above high normal Not Available [facility] ([facility]) [address] [place], [address], 11/30/2024 11:07:46 11/29/19 25 11/30/2024 CBC WITH DIFFE RENTI AL/PL ATELE T MCH 31.3 pg 26.6-3 3.0 normal Not Available [facility] ([facility]) [address] [place], [address], 11/30/2024 11:07:46 11/29/19 25 11/30/2024 CBC WITH DIFFE RENTI AL/PL ATELE T MCHC 32.1 g/dL 31.5-3 5.7 normal Not Available [facility] ([facility]) [address] [place], [address], 11/30/2024 11:07:46 11/29/19 25 11/30/2024 CBC WITH DIFFE RENTI AL/PL ATELE T RDW 12.4 % 11.7-1 5.4 Not Available [facility] ([facility]) [address] [place], [address], 11/30/2024 11:07:46 11/29/19 25 11/30/2024 CBC WITH DIFFE RENTI AL/PL ATELE T platelets 248 x10e3 /uL 150-45 0 normal Not Available [facility] ([facility]) [address] [facility], [place], [address], 11/30/2024 11:07:46 11/29/19 25 11/30/2024 CBC WITH DIFFE RENTI AL/PL ATELE T neutrophils 53 % not estab. normal Not Available [facility] ([facility]) [address] [facility], [place], [address], 11/30/2024 11:07:46 11/29/19 25 11/30/2024 CBC WITH DIFFE RENTI AL/PL ATELE T lymphs 37 % not estab. normal Not Available [facility] ([facility]) [address] [facility], [place], [address], 11/30/2024 11:07:46 11/29/19 25 11/30/2024 CBC WITH DIFFE RENTI AL/PL ATELE T monocytes 8 % not estab. normal Not Available [facility] ([facility]) [address] [facility], [place], [address], 11/30/2024 11:07:46 11/29/19 25 11/30/2024 CBC WITH DIFFE RENTI AL/PL ATELE T eos 2 % not estab. normal Not Available [facility] ([facility]) [address] [facility], [place], [address], 11/30/2024 11:07:46 11/29/19 25 11/30/2024 CBC WITH DIFFE RENTI AL/PL ATELE T basos 0 % not estab. normal Not Available [facility] ([facility]) [address] [facility], [place], [address], 11/30/2024 11:07:46 11/29/19 25 11/30/2024 CBC WITH DIFFE RENTI AL/PL ATELE T immature cells SOCIOLOGY RESEARCH ASSISTANT Not Available [facility] ([facility]) [address] [place], [address], 11/30/2024 11:07:46 11/29/19 25 11/30/2024 CBC WITH DIFFE RENTI AL/PL ATELE T neutrophils (absolute) 3.8 x10e3 /uL 1.4-7. 0 normal Not Available [facility] ([facility]) [address] [place], [address], 11/30/2024 11:07:46 11/29/19 25 11/30/2024 CBC WITH DIFFE RENTI AL/PL ATELE T lymphs (absolute) 2.7 x10e3 /uL 0.7-3. 1 normal Not Available [facility] ([facility]) [address] [place], [address], 11/30/2024 11:07:46 11/29/19 25 11/30/2024 CBC WITH DIFFE RENTI AL/PL ATELE T monocytes(ab solute) 0.6 x10e3 /uL 0.1-0. 9 normal Not Available [facility] ([facility]) [address] [place], [address], 11/30/2024 11:07:46 11/29/19 25 11/30/2024 CBC WITH DIFFE RENTI AL/PL ATELE T eos (absolute) 0.2 x10e3 /uL 0.0-0. 4 normal Not Available [facility] ([facility]) [address] [place], [address], 11/30/2024 11:07:46 11/29/19 25 11/30/2024 CBC WITH DIFFE RENTI AL/PL ATELE T baso (absolute) 0.0 x10e3 /uL 0.0-0. 2 normal Not Available [facility] ([facility]) [address] [place], [address], 11/30/2024 11:07:46 11/29/19 25 11/30/2024 CBC WITH DIFFE RENTI AL/PL ATELE T immature granulocytes 0 % not estab. Not Available [facility] ([facility]) [address] [facility], [place], [address], 11/30/2024 11:07:46 11/29/19 25 11/30/2024 CBC WITH DIFFE RENTI AL/PL ATELE T immature grans (abs) 0.0 x10e3 /uL 0.0-0. 1 Not Available [facility] ([facility]) [address] [facility], [place], [address], 11/30/2024 11:07:46 11/29/19 25 11/30/2024 CBC WITH DIFFE RENTI AL/PL ATELE T NRBC SOCIOLOGY RESEARCH ASSISTANT Not Available [facility] ([facility]) [address] [facility], [place], [address], 11/30/2024 11:07:46 11/29/19 25 11/30/2024 CBC WITH DIFFE RENTI AL/PL ATELE T hematology comments: SOCIOLOGY RESEARCH ASSISTANT Not Available [facility] ([facility]) [address] [facility], [place], [address], 11/30/2024 11:07:46 11/29/19 25 11/30/2024 COMP. METAB OLIC PANEL (14) glucose 86 mg/dL 70-99 normal Not Available [facility] ([facility]) [address] [facility], [place], [address], 11/30/2024 11:07:46 11/29/19 25 11/30/2024 COMP. METAB OLIC PANEL (14) BUN 10 mg/dL 6-24 normal Not Available [facility] ([facility]) [address] [facility], [place], [address], 11/30/2024 11:07:46 11/29/19 25 11/30/2024 COMP. METAB OLIC PANEL (14) creatinine 0.67 mg/dL 0.57-1 .00 normal Not Available [facility] ([facility]) [address] [place], [address], 11/30/2024 11:07:46 11/29/19 25 11/30/2024 COMP. METAB OLIC PANEL (14) eGFR 108 mL/mi n/1.7 3 >59 normal Not Available [facility] ([facility]) [address] [facility], [place], [address], 11/30/2024 11:07:46 11/29/19 25 11/30/2024 COMP. METAB OLIC PANEL (14) BUN/creatini ne ratio 15 9-23 normal Not Available [facility] ([facility]) [address] [facility], [place], [address], 11/30/2024 11:07:46 11/29/19 25 11/30/2024 COMP. METAB OLIC PANEL (14) sodium 139 mmol/ L 134-14 4 normal Not Available [facility] ([facility]) [address] [place], [address], 11/30/2024 11:07:46 11/29/19 25 11/30/2024 COMP. METAB OLIC PANEL (14) potassium 4.6 mmol/ L 3.5-5. 2 normal Not Available [facility] ([facility]) [address] [place], [address], 11/30/2024 11:07:46 11/29/19 25 11/30/2024 COMP. METAB OLIC PANEL (14) chloride 104 mmol/ L 96-106 normal Not Available [facility] ([facility]) [address] [place], [address], 11/30/2024 11:07:46 11/29/19 25 11/30/2024 COMP. METAB OLIC PANEL (14) carbon dioxide, total 22 mmol/ L 20-29 normal Not Available [facility] ([facility]) [address] [facility] [place], [address], 11/30/2024 11:07:46 11/29/19 25 11/30/2024 COMP. METAB OLIC PANEL (14) calcium 9.5 mg/dL 8.7-10 .2 normal Not Available [facility] ([facility]) [address] [facility], [place], [address], 11/30/2024 11:07:46 11/29/19 25 11/30/2024 COMP. METAB OLIC PANEL (14) protein, total 6.9 g/dL 6.0-8. 5 normal Not Available [facility] ([facility]) [address] [facility] [place], [address], 11/30/2024 11:07:46 11/29/19 25 11/30/2024 COMP. METAB OLIC PANEL (14) albumin 4.3 g/dL 3.9-4. 9 normal Not Available [facility] ([facility]) [address] [place], [address], 11/30/2024 11:07:46 11/29/19 25 11/30/2024 COMP. METAB OLIC PANEL (14) globulin, total 2.6 g/dL 1.5-4. 5 Not Available [facility] ([facility]) [address] [place], [address], 11/30/2024 11:07:46 11/29/19 25 11/30/2024 COMP. METAB OLIC PANEL (14) bilirubin, total 0.4 mg/dL 0.0-1. 2 normal Not Available [facility] ([facility]) [address] [place], [address], 11/30/2024 11:07:46 11/29/19 25 11/30/2024 COMP. METAB OLIC PANEL (14) alkaline phosphatase 99 IU/L 44-121 normal Not Available [facility] ([facility]) [address] [facility] [place], [address], 11/30/2024 11:07:46 11/29/19 25 11/30/2024 COMP. METAB OLIC PANEL (14) AST (SGOT) 13 IU/L 0-40 normal Not Available [facility] ([facility]) [address] [facility] [place], [address], 11/30/2024 11:07:46 11/29/19 25 11/30/2024 COMP. METAB OLIC PANEL (14) ALT (SGPT) 18 IU/L 0-32 normal Not Available [facility] ([facility]) [address] [facility] [place], [address], 11/30/2024 11:07:46 11/29/19 25 11/30/2024 VITAM IN B12 AND FOLAT E vitamin B12 632 pg/mL 232-12 45 normal Not Available [facility] ([facility]) [address] [facility] [place], [address], 11/30/2024 11:07:47 11/29/19 25 11/30/2024 VITAM IN B12 AND FOLAT E folate (folic acid), serum >20.0 NG/mL >3.0 A serum folat e ariane ntrat ion of less than 3.1 ng/mL is consi dered to repre sent clini terese defic iency . Not Available [facility] ([facility]) [address] [facility] [place], [address], 11/30/2024 11:07:47 11/29/19 25 11/30/2024 VITAM IN D, 25-HY DROXY vitamin D, 25-hydroxy 68.8 NG/mL 30.0-1 00.0 Vitam in D defic iency has been defin ed by the Insti tute of Medic ine and an Endoc rine Socie ty pract ice guide line as a level of serum 25-OH vitam in D less than 20 ng/mL (1,2) . The Endoc rine Socie ty went on to furth er defin e vitam in D insuf ficie ncy as a level betwe en 21 and 29 ng/mL (2). 1. IOM (Inst itute of Medic ine). 2010. Dieta ry refer ence intak es for calci um and D. Riky abebe [place]: [employer] [facility] . 2. Yvette delgado MF, Dexter ey [place], Joey off-F errar i SHRESTHA, et al. Evalu ation , treat ment, and preve ntion of vitam in D defic iency : an Endoc rine Socie ty clini terese pract ice guide line. JCEM. 2010; 96(7) :1911 -30. Not Available [facility] ([facility]) [address] [facility], [place], [address], 11/30/2024 11:07:47 11/29/1911/29/2024 rapid SARS CoV + SARS CoV 2 Ag, QL IA, respi rator y speci men SARS CoV antigen Negati ve Not Available [address], [address], 11/29/2024 16:00:21 11/29/19 25 11/29/2024 rapid flu (A+B) Flu negati ve Not Available [address], [address], 11/29/2024 16:00:18 11/29/19 25 11/29/2024 rapid flu (A+B) Type Both A & B Not Available [address], [address], 11/29/2024 16:00:18 01/17/20 25 01/16/2025 MAMMO , scree sung, tomos ynthe sis, bilat eral, w/ CAD No observ ation record ed. [email or web address] ([facility]) [address] [place] [address] , [place], [address], 01/22/2025 09:31:46 02/01/2001/25/2025 US, doppl er echoc ardio gram No observ ation record ed. [facility] [address], [place], [address], 02/01/2025 09:43:04 Result Notes None recorded. Problems Name Problem SNOMED Code Status Onset Date Resolution Date Notes Provider Name and Address Organization Details Recorded Time Environmen camilla allergy 103541122 Active Catherine Sellers null, [place] - [facility] 2 09:30:39 Gastroesop hageal reflux disease 580617555 Active Catherine Verito null, [place] - [facility] 2 09:36:48 Irritable bowel syndrome 62028269 Active Catherineberna Sellers null, [place] - [facility] 2 09:37:00 Chronic interstiti al cystitis 990444727 Active Catherine Sellers [place] [facility] 2 09:37:35 Type 2 diabetes mellitus 74494074 Active Catherine Sellers [place] - [facility] 3 18:33:26 Acute sinusitis 98396426 Active 2022 Moi Jones APRN [address], [place], [address] , [place] - [facility] 3 14:19:56 Seasonal allergic rhinitis 658886451 Active 2022 Moi Jones APRN [address], [place], [address] , [place] - [facility] 3 14:22:58 Seasonal allergy 629381355 Active 2022 Moi Jones APRN [address], [place], [address] , [place] - [facility] 3 14:37:20 Allergic conjunctiv itis of bilateral eyes 1745404622697 02 Active 2022 Moi Jones APRN [address], [place], [address] , [place] - [facility] 3 14:40:53 Problem Notes None recorded. Procedures Surgical History Date Name Laterality Status Provider Name and Address Organization Details Recorded Time 01/17/20 25 Date of Last Mammogram completed Cheli Coreas [place] - [facility] 01/16/2025 11:52:27 09/27/20 22 Date of Last Pap Smear completed Cheli Coreas [place] - [facility] 11/30/2022 17:15:34 cholecystectomy completed Catherine Sellers [place] - [facility] 08/17/2022 09:39:30 Imaging Results [...] propionate 50 mcg/actuati on nasal spray,suspe nsion [place] 1 spray every day by intranasa l [...] Not Available Vitals Date Recorded Body height Body mass index (BMI) Body weight Heart rate Oxygen saturation Oxygen saturation in Arterial blood by Pulse oximetry Respiratory rate Systolic And Diastolic Provider Name and Address Organization Details Last Updated DateTime 5 165.1 cm 37.5 kg/m2 115213. 68 g 93 /min 98 % 98 % 18 /min 108/70 mm[Hg] Catherine Sellers [place] - [facility] 5 15:13:33 Date Recorded Body height Respiratory rate Body mass index (BMI) Body weight Body temperature Oxygen saturation Oxygen saturation in Arterial blood by Pulse oximetry Heart rate Systolic And Diastolic Provider Name and Address Organization Details Last Updated DateTime 5 165.1 cm 18 /min 36.8 kg/m2 731757. 91 g 97.9 [degF] 99 % 99 % 74 /min 124/76 mm[Hg] Cheli Coreas [place] - [facility] 5 10:08:56 Date Recorded Body height Respiratory rate Body mass index (BMI) Body weight Heart rate Oxygen saturation Oxygen saturation in Arterial blood by Pulse oximetry Body temperature Systolic And Diastolic Provider Name and Address Organization Details Last Updated DateTime 4 165.1 cm 18 /min 38.6 kg/m2 687670. 43 g 84 /min 98 % 98 % 97.8 [degF] 110/64 mm[Hg] Cheli Tuckers [place] - [facility] 4 13:33:49 Date Recorded Body height Body mass index (BMI) Body weight Body temperature Heart rate Oxygen saturation Oxygen saturation in Arterial blood by Pulse oximetry Respiratory rate Systolic And Diastolic Provider Name and Address Organization Details Last Updated DateTime 4 165.1 cm 37.9 kg/m2 989456. 27 g 97.7 [degF] 102 /min 98 % 98 % 18 /min 94/60 mm[Hg] Catherine Sellers [place] - [facility] 4 16:33:08 Date Recorded Body height Heart rate Body mass index (BMI) Body weight Body temperature Oxygen saturation Oxygen saturation in Arterial blood by Pulse oximetry Respiratory rate Systolic And Diastolic Provider Name and Address Organization Details Last Updated DateTime 4 165.1 cm 92 /min 37.1 kg/m2 028041. 8 g 98 [degF] 98 % 98 % 18 /min 100/60 mm[Hg] Catherine Sellers [facility] 4 11:36:37 Social History Question Answer Notes LastModified by Organizat ion Details LastModified Time Tobacco Smoking Status Never Smoker Catherine Sellers [facility] 08/17/2022 09:42:53 Do You Have An Advance [...] Or The Highest Degree You Have Received? [id number] Information not available 11/30/2022 Have There Been Any Changes To Your Family Or Social Situation? No Information no t available 11/30/2022 What Is The Fluoride Status Of Your Home? Unknown Information not available 11/30/2022 Have You Recently Or Are You Planning To Travel To An Area With Zika Virus? No Information not available 05/30/2023 Do You Have A Medical Power Of Associate Professor Of Biology? No Information not available 11/30/2022 What Was [...] ot available 11/30/2022 What is your occupation? [employer] de[employer] of [employer] Information not available 11/30/2022 Do you have difficulty dressing or bathing? No Information not available 11/30/2022 What is your exercise level? None Information not available 11/30/2022 Mental Status Question Answer Note LastModified by Organizat ion Details LastModified Time Do you feel stressed (tense, restless, nervous, or anxious, or unable to sleep at night)? [id number] Information not available 11/30/2022 Do you have [...] Time Tdap 4 completed Geoff Olivo APRN [address] [place] [address], [address], [place] - [facility] 11/29/2023 13:15:00 Influenza, split virus, quadrivalent, PF 0 completed [place] - [facility] 08/17/2022 09:26:12 Hep B, unspecified formulation 6 completed Catherine farris [place] - [facility] 08/17/2022 09:26:12 Past Encounters Encounter ID Performer Location Encounter Start Date Encounter Closed Date Diagnosis/Indication Diagnosis SNOMED-CT Code Diagnosis ICD10 Code Diagnosis Note [id number] Geoff Olivo APRN [address] [address] 08/17/2022 08:41:42 08/17/2022 10:50:16 Acute bronchitis 27816559 J20.9 Acute maxi llary sinusitis 26569200 J01.00 [id number] [place] [id number] 09/23/2022 08:19:37 09/23/2022 09:28:33 Acute cystitis 02337488 N30.00 will treat Candidiasis of vagina 72 170736 B37.31 [id number] Geoff Olivo [place] [id number] 11/08/2022 10:17:35 11/08/2022 11:15:28 Acute maxillary sinusitis 96499727 J01.00 [id number] [facility]ase[facility]a [place] [id number] 11/30/2022 16:56:04 11/30/2022 18:35:49 Streptococcal sore throat 35700773 J02.0 Cough 91218967 R05.9 [id number] [facility]ie [place] [id number] 12/09/2022 13:21:03 12/09/2022 15:43:12 Pharyngitis 928434859 J02.9 Fatigue 42658606 R53.83 Streptococ terese sore throat 09199691 J02.0 if symptoms do not improve return or be seen in ed [id number] Geoff Garciakarie [address] [address] 05/30/2023 10:38:50 05/30/2023 11:42:17 Acute maxillary sinusitis 84593536 J01.00 [id number] Moi Jones [address] [address] 06/23/2023 13:53:35 06/23/2023 15:01:28 Acute sinusitis 62692890 J01.90 Patient likely has an acute bacterial sinusitis. Will treat as below.No signs of preseptal or orbital cellulitis , meningismu s, or neurologic changes concerning for intracrani al process. Instructed family to monitor patient closely and call office for any of these symptoms.S upportive care reviewed: raising HOB, humidifier use, saline nasal spray, rest, encourage PO fluids and monitor hydration status, infection control measures.R ecommended acetaminop hen/ibupro fen PRN pain, fever; reviewed appropriat e doses.Foll ow-up as below. Seasonal a llergic rhinitis 683444552 J30.2 Allergic conjunctivitis of bilateral eyes 7487582839 50816 H10.13 [id number] [facility] [place] [address] 08/09/2023 14:59:57 08/09/2023 16:58:50 Loss of hair 436722633 L65.9 Fatigue 55552162 R53.83 Tired all the time 89766 2009 R53.82 Muscle pain 54188653 M79 .10 [id number] [facility] [place] [address] 08/15/2023 08:56:55 08/15/2023 10:24:41 Acute maxillary sinusitis 58939302 J01.00 [id number] [facility] [place] [address] 08/30/2023 17:11:35 08/30/2023 18:37:22 Type 2 diabetes mellitus 71807255 E11.9 gave booklet on glp1 role in type 2 dmand educated on how to give sc injections Hemorrhoids 88738282 K64 .9 Hypoglycemia 813718343 E 16.2 [id number] [facility] [place] [id number] 09/06/2023 16:42:57 09/06/2023 17:19:45 Type 2 diabetes mellitus 77808532 E11.9 gave booklet on glp1 role in type 2 dmand educated on how to give sc injections [id number] [place] [id number] 09/16/2023 13:49:47 09/16/2023 14:23:59 Type 2 diabetes mellitus 43026693 E11.9 gave booklet on glp1 role in type 2 dmand educated on how to give sc injections [id number] Geoff Garciakarie [address] [address] 09/27/2023 11:29:49 09/27/2023 12:45:35 Type 2 diabetes mellitus 06153700 E11.9 [id number] Geoff Olivo [address] [address] 11/15/2023 08:57:02 11/15/2023 10:21:53 Acute maxillary sinusitis 45961974 J01.00 [id number] Geoff Olivo[address] [address] 11/29/2023 08:38:54 11/29/2023 11:06:10 Body mass index 40+ - severely obese 239993933 Z68.41 bmi 41.3 Morbid obesity 457722718 E66.01 Type 2 nery betes mellitus 20120735 E11.9 *Diabetic Measures:M etformin:y esACE/ARB: startedASA :yesStatin :no- pt is thinking about itGLP:yesO joshua, pt doing well at this time. Last a1c was 6.5. This has remained stable since previous visit. Pt is due for Diabetic labs at today's visit. Pt will need repeat A1c today. Discussed routine diabetic follow up in 3 months and pt is agreeable. Pt counseled on diet and weight management at today's visit. Pt will try to comply with ADA guidelines in regards to diet and increase daily activity as tolerated. Call or RTC sooner than follow up should any questions or concerns arise. Gastroesop hageal reflux disease 119292989 K21.9 Environmental allergy 42 0249460 T78.49XA HIV screen ing declined 9162926081 62017 Z53.20 Hepatitis C screening declined 8646201361 5105 Z53.20 Active or passive immunization 459331011 Z23 [id number] Geoff Garciakarie [address] [address] 01/19/2024 10:07:41 01/19/2024 12:20:22 Body mass index 40+ - severely obese 104526054 Z68.41 bmi 40.3 Morbid obesity 192937258 E66.01 Seasonal allergy 0791008 04 J30.2 [id number] Geoff Olivo [employer] [address] [address] 03/23/2024 10:59:30 03/23/2024 12:21:56 Low back pain 815839559 M54.50 Ordered steroid shot to help with the pain and any inflammati on. Rib pain 522274625 R07.8 1 Xray ordered to make sure no acute fracture. Toothache 42740770 K08.8 9 Patient prescribed rocephin for infection. [id number] Geoff Olivo [employer] [address] [address] 04/20/2024 09:03:47 04/20/2024 10:52:29 Type 2 diabetes mellitus 10371982 E11.9 *Diabetic Measures:M etformin:y esACE/ARB: stopped by cardiology ASA:yesSta tin:no- yesGLP:yes Overall, pt doing well at this time. Last a1c was 5.7. This has remained stable since previous visit. Pt is due for Diabetic labs at today's visit. Pt will need repeat A1c today. Discussed routine diabetic follow up in 3 months and pt is agreeable. Pt counseled on diet and weight management at today's visit. Pt will try to comply with ADA guidelines in regards to diet and increase daily activity as tolerated. Call or RTC sooner than follow up should any questions or concerns arise. Gastroesop hageal reflux disease 177646789 K21.9 Continue taking medication rabeprazol e Malaise and fatigue 2717 03850 R53.83 Ordered labs to check for differenti al diagnoses for fatigue Irritable bowel syndrome 51887847 K58.9 Discussed BRAT diet and continue taking imodium. If patient cannot tolerate fluids and foods and continues having diarrhea to have patient see provider. Acute sero us otitis media of bilateral ears 6736880297 283028 H65.03 Patient has fluid in middle ears on assessment Drug-induc ed hypotension 249124614 I95.2 Spoke with patient about cutting dose of metoprolol from 25 mg to 12.5 mg due to lower blood pressure and dizziness . Blood pressure today 90/60. Last visit 110/60 03/23/24. [id number] Geoff Olivo [address] [address] 05/15/2024 13:21:38 05/15/2024 14:41:53 Acute maxillary sinusitis 40085933 J01.00 [id number] Geoff Olivo [address] [address] 06/15/2024 16:07:52 06/15/2024 17:08:13 Increased frequency of urination 518215948 R35.0 Pain of mu ltiple joints 66084526 M25.50 Acute urin gail tract infection 086154410 N39.0 Missed period 99111660 N 92.5 has us scheduled by drywall finisher- obtain labs done by drywall finisher [id number] Geoff Olivo [address] [address] 08/02/2024 11:21:37 08/02/2024 12:11:25 Streptococcal sore throat 80198542 J02.0 if symptoms do not improve return or be seen in ed [id number] Geoff Olivo [address] [address] 11/29/2024 14:48:27 11/29/2024 16:12:23 Gastroesophageal reflux disease 038857854 K21.9 Continue taking medication rabeprazol e Fever 658875410 R50.9 Acute maxi llary sinusitis 66104406 J01.00 Cobalamin deficiency 190 787204 E53.8 Vitamin D deficiency 347 90520 E55.9 [id number] Ajdelia Olivo [address] [address] 04/19/2025 09:43:17 04/19/2025 10:52:03 Pain of knee region 3273412362 M25.561 motrin/tyl enoliceres tprednison efollow up with [...] Member ID Randolph Member ID Guarantor Name 09/14/2022 1 [place] [address] Su [address] Herman [id number] Su Herman 04/19/2025 1 [place] [employer] [id number] Herman [id number] Su Herman Notes Date Note Type Note Provider Name and Address Organization Details Recorded Time 05/15/2024 text/html 49 year old anushka reyna who presents to the office today with concerns ofcongestion, sore throat, ears popping, sinus tenderness, pressurestates inhaled dust and shavings 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 She also has urinary frequency. pt states she seen drywall finisher and had labs per pt they are all normal Geoff Olivo APRN [address], [place], [address], [place] [facility] 06/21/2024 15:19:30 08/02/2024 text/html 49 yr old female presents for a sore throat x 3 days. Geoff Olivo APRN [address], [place], [address], [place] [facility] 08/02/2024 13:24:47 11/29/2024 text/html 49 yr old female presents for dizziness, sinus pressure,tenderness, shrestha and cough. pt states she recently had surgery and has been off her mounjro. pt states she did run a fever for a few days. pt states she feels swollen. Geoff Olivo APRN [address], [place], [address], [place] [facility] 11/29/2024 16:32:53 04/19/2025 text/html 50 year old femmarco reyna who presents to the office today with concerns of right knee pain-warm to touch, twisted knee while working in the garden. she has an appt with ortho on Tuesday with Dr. Castro's office, she needs an xray orderedalso has concerns of rash under right breast Geoff Olivo, [employer] [address], [place], [address], [place] [facility] 04/19/2025 10:55:25 OBGyn Episode No OBEpisode recorded.
--- OUTSIDE RECORDS SUMMARY | 2025-04-22 13:20 | XMS_ITS | Clinical Summary ---
Author Organization [employer] ([place], [place], [place], [place]) Address [address] [place] [address] Care Team Providers Care Returning Officer Name Role Phone Geoff Olivo Primary Care Provider [phone] Allergies Active Allergy Reactions Criticality Noted Date [...] Date Lakhwinder rded Speak language other than Botswanan at home Not on file 10/21/2023 Want [...] 11/19/2024 3:30 PM EST Plan of Treatment Health Maintenance Due Date Last Done Comments CT Colonography 1977 Colonoscopy 1977 Colorectal Cancer Screening 1977 FOBT/FIT 1977 Fit-DNA (Cologuard) 1977 Sigmoidoscopy 1977 Depression Screening (12+) 1989 HIV Screening 1992 Hepatitis C Screening 1995 Pap Smear 1998 Breast Cancer Screening 2017 Lipid Panel 2022 COVID-19 VACCINE (1 - 2023-2 5 season) 2024 Influenza Vaccine (#1) 2025 Tobacco Cessation Counseling and Screening (12+) 11/23/2025 11/23/2024 DTAP/TDAP/TD VACCINES (2 - T d or Tdap) 11/29/2033 11/29/2023 Pneumococcal Vaccine: 0-49 Years Aged Out No longer eligible based on patient's age to complete this topic Insurance BLUE CROSS/BLUE SHIELD Care Teams Returning Officer Relationship Specialty Start Date End Date Geoff Olivo [address] [place] [address] PCP - General 11/23/24
== END 2025-04-22 23:59 | disposition home or self-care (01) ==
LOC: RAD 13:17
PROVIDERS: PCP Nurse Practitioner Family; Visit Provider Physician Assistant Surgical
DX: M17.11 Unilateral primary osteoarthritis, right knee (principal); M25.461 Effusion, right knee; S83.011A Lateral subluxation of right patella, initial encounter; X58.XXXA Exposure to other specified factors, initial encounter
CPT/HCPCS: 73562